=== PATIENT | male | born 1985 | race Hispanic/Latino ===

== ENCOUNTER 2018-09-01 13:39 | Emergency (ER) | payer BC ==
--- NOTE | 2018-09-01 15:14 | RAD REPORT ---
EXAM DESCRIPTION: RAD - Chest Pa And Lat (2 Views) - 09/01/2018 2:32 pm CLINICAL HISTORY: Chest pain, productive cough COMPARISON: None. TECHNIQUE: PA and lateral views of the chest were obtained. FINDINGS: The lungs are clear. Heart size is normal and central vasculature is within normal limit s. No pleural effusion or pneumothorax seen. No acute bony finding noted. No aortic abnormality. IMPRESSION: No acute cardiopulmonary process.
[2018-09-01 15:20] LABS: Absolute Monocytes 0.9 K/uL (0.1-1.3); Absolute Neutrophil 7.5 K/uL (1.8-8.0); Basophils % 0.8 % (0-1.3); Eosinophils % 2.2 % (0-4.4); Lymphocytes % 18.4 % (15.3-44.8); MPV 8.2 fL (7.6-11.3); Monocytes % 8.2 % (3.3-12.3); RBC Red Blood Cell Count 5.31 M/uL (4.33-5.43)
[2018-09-01] MEDS ORDERED: ASPIRIN 81 MG CHEWABLE TABLET ONE (15:24)
[2018-09-01] MEDS ORDERED: NA CHLORIDE 0.9% 1,000 ML ONE (15:24)
[2018-09-01 15:36] LABS: Barbiturates NEGATIVE (NEGATIVE); Benzodiazepines NEGATIVE (NEGATIVE); Cocaine NEGATIVE (NEGATIVE); METHAMPHETAM NEGATIVE (NEGATIVE); Methadone NEGATIVE (NEGATIVE); Opiates NEGATIVE (NEGATIVE); Phencyclidine NEGATIVE (NEGATIVE); THC Cannibis NEGATIVE (NEGATIVE)
[2018-09-01 15:43] LABS: ALT/SGPT 44 U/L (12-78); AST/SGOT 24 U/L (15-37); Albumin 4.1 g/dL (3.4-5.0); Alkaline Phosphatase 92 U/L (45-117); BUN Blood Urea Nitrogen 16 mg/dL (7-18); Bicarbonate 29 mmol/L (21-32); Bilirubin Direct 0.1 mg/dL (0-0.2); Bilirubin Total 0.5 mg/dL (0.2-1.0); Glucose Level 93 mg/dL (74-106); Lipase 171 U/L (73-393); Magnesium 2.4 mg/dL (1.8-2.4); Potassium 4.1 mmol/L (3.5-5.1); Protein, Total 8.2 g/dL (6.4-8.2); Sodium Level 138 mmol/L (136-145); Troponin (Emerg Dept Use Only) < 0.02 ng/mL (0.0-0.045)
--- NOTE | 2018-09-01 16:08 | EDPHYS ---
Physician Documentation [facility] Name: Bandar Torrez Age: 32 yrs Sex: Male : 1985 Arrival Date: 09/01/2018 Time: 13:43 Bed 19 Private MD: None, None ED Physician Ronny Patricia HPI: 09/01 14:49 This 32 yrs old Male presents to ER via Ambulatory with complaints of Painful emma Cough. 14:49 The patient or guardian reports cough. emma 14:50 The patient or guardian reports chest pain that is located primarily in the anterior emma chest wall, bilaterally. The pain does not radiate. Onset: The symptoms/episode began/occurred 2 day(s) ago. Severity of symptoms: At their worst the symptoms were mild, in the emergency department the symptoms are unchanged. Modifying factors: The symptoms are alleviated by nothing, the symptoms are aggravated by movements and deep respirations. Associated signs and symptoms: The patient has no apparent associated signs or symptoms. Historical: - Allergies: 13:48 No Known Allergies; ss - Home Meds: 13:48 None [Active]; ss - PMHx: 13:48 None; ss - PSHx: 13:48 Hernia repair; ss - Immunization history:: Adult Immunizations up to date. - Social history:: Smoking status: Patient uses tobacco products, smokes one-half pack cigarettes per day. - Ebola Screening: : Patient denies exposure to infectious person Patient denies travel to an Ebola-affected area in the 21 days before illness onset. - Family history:: not pertinent. ROS: 14:50 Constitutional: Negative for fever, chills, and weight loss, Eyes: Negative for injury, emma pain, redness, and discharge, ENT: Negative for injury, pain, and discharge, Neck: Negative for injury, pain, and swelling, Respiratory: Negative for shortness of breath, cough, wheezing, and pleuritic chest pain, Abdomen/GI: Negative for abdominal pain, nausea, vomiting, diarrhea, and constipation, Back: Negative for injury and pain, : Negative for injury, bleeding, discharge, and swelling, MS/Extremity: Negative for injury and deformity, Skin: Negative for injury, rash, and discoloration, Neuro: Negative for headache, weakness, numbness, tingling, and seizure, Psych: Negative for depression, anxiety, suicide ideation, homicidal ideation, and hallucinations, Allergy/Immunology: Negative for hives, rash, and allergies, Endocrine: Negative for neck swelling, polydipsia, polyuria, polyphagia, and marked weight changes, Hematologic/Lymphatic: Negative for swollen nodes, abnormal bleeding, and unusual bruising. 14:50 Cardiovascular: Positive for chest pain, with cough, with movement, of the chest. emma Exam: 14:50 Constitutional: This is a well developed, well nourished patient who is awake, alert, emma and in no acute distress. Head/Face: Normocephalic, atraumatic. Eyes: Pupils equal round and reactive to light, extra-ocular motions intact. Lids and lashes normal. Conjunctiva and sclera are non-icteric and not injected. Cornea within normal limits. Periorbital areas with no swelling, redness, or edema. ENT: Nares patent. No nasal discharge, no septal abnormalities noted. Tympanic membranes are normal and external auditory canals are clear. Oropharynx with no redness, swelling, or masses, exudates, or evidence of obstruction, uvula midline. Mucous membranes moist. Neck: Trachea midline, no thyromegaly or masses palpated, and no cervical lymphadenopathy. Supple, full range of motion without nuchal rigidity, or vertebral point tenderness. No Meningismus. Chest/axilla: Normal chest wall appearance and motion. Nontender with no deformity. No lesions are appreciated. Cardiovascular: Regular rate and rhythm with a normal S1 and S2. No gallops, murmurs, or rubs. Normal PMI, no JVD. No pulse deficits. Respiratory: Lungs have equal breath sounds bilaterally, clear to auscultation and percussion. No rales, rhonchi or wheezes noted. No increased work of breathing, no retractions or nasal flaring. Abdomen/GI: Soft, non-tender, with normal bowel sounds. No distension or tympany. No guarding or rebound. No evidence of tenderness throughout. Back: No spinal tenderness. No costovertebral tenderness. Full range of motion. Male : Normal genitalia with no discharge or lesions. Skin: Warm, dry with normal turgor. Normal color with no rashes, no lesions, and no evidence of cellulitis. MS/ Extremity: Pulses equal, no cyanosis. Neurovascular intact. Full, normal range of motion. Neuro: Awake and alert, GCS 15, oriented to person, place, time, and situation. Cranial nerves II-XII grossly intact. Motor strength 5/5 in all extremities. Sensory grossly intact. Cerebellar exam normal. Normal gait. Psych: Awake, alert, with orientation to person, place and time. Behavior, mood, and affect are within normal limits. 14:50 Musculoskeletal/extremity: DVT Exam: No signs of deep vein thrombosis. no pain, no swelling, no tenderness, negative Homans' sign noted on exam, no appreciated bluish discoloration, no erythema, no increased warmth. Vital Signs: 13:48 BP 145 / 81; Pulse 87; Resp 15; Temp 97.9(TE); Pulse Ox 98% on R/A; Weight 77.11 kg; ss Height 5 ft. 6 in. (167.64 cm); Pain 0/10; 15:44 BP 121 / 82; Pulse 74; Resp 16; Pulse Ox 100% ; bp 13:48 Body Mass Index 27.44 (77.11 kg, 167.64 cm) MDM: 13:50 Patient medically screened. [facility] 14:56 Data reviewed: vital signs, nurses notes, lab test result(s), EKG, radiologic studies, emma plain films. 09/01 14:49 Order name: Basic Metabolic Panel; Complete Time: 16:07 [facility] 09/01 14:49 Order name: CBC with Diff; Complete Time: 16:07 [facility] 09/01 14:49 Order name: LFT's; Complete Time: 16:07 [facility] 09/01 14:49 Order name: Magnesium; Complete Time: 16:07 [facility] 09/01 14:49 Order name: Troponin (emerg Dept Use Only); Complete Time: 16:07 [facility] 09/01 14:49 Order name: Lipase; Complete Time: 16:07 [facility] 09/01 14:17 Order name: Chest Pa And Lat (2 Views) XRAY; Complete Time: 16:07 [facility] 09/01 14:49 Order name: EKG; Complete Time: 14:50 [facility] 09/01 14:49 Order name: Cardiac monitoring; Complete Time: 15:18 [facility] 09/01 14:49 Order name: UDS; Complete Time: 16:07 [facility] 09/01 14:56 Order name: D-Dimer; Complete Time: 16:07 [facility] 09/01 15:15 Order name: Urine Dipstick--Ancillary (enter results) 09/01 14:49 Order name: EKG - Nurse/Tech; Complete Time: 15:18 [facility] 09/01 14:49 Order name: IV Saline Lock; Complete Time: 15:18 [facility] 09/01 14:49 Order name: Labs collected and sent; Complete Time: 15:18 [facility] 09/01 14:49 Order name: O2 Per Protocol; Complete Time: 15:18 [facility] 09/01 14:49 Order name: O2 Sat Monitoring; Complete Time: 15:18 [facility] 09/01 14:49 Order name: Urine Dipstick-Ancillary (obtain specimen); Complete Time: 15:17 [facility] Administered Medications: 15:00 Drug: Aspirin 162 mg Route: PO; bp 16:38 Follow up: Response: No adverse reaction bp 15:00 Drug: NS 0.9% 1000 ml Route: IV; Rate: 125 ml/hr; Site: right antecubital; bp 16:38 Follow up: IV Status: Completed infusion; IV Intake: 250ml bp Disposition: 09/01/18 16:07 Discharged to Home. Impression: Other chest pain, Cough. - Condition is Stable. - Discharge Instructions: Nonspecific Chest Pain, Chest Wall Pain, Nonspecific Chest Pain, [id number], Aspirin and Your Heart. - Prescriptions for Ibuprofen 600 mg Oral Tablet - take 1 tablet by ORAL route every 8 hours As needed take with food; 21 tablet. - Medication Reconciliation Form, Thank You Letter, Antibiotic Education, Prescription Opioid Use form. - Follow up: Private Physician; When: 2 - 3 days; Reason: Recheck today's complaints, Continuance of care, Re-evaluation by your physician. Follow up: Ke Pang; When: 2 - 3 days; Reason: Recheck today's complaints, Re-evaluation by your physician. - Problem is new. - Symptoms have improved. Signatures: Dispatcher [employer] EDMS Ronny Patricia MD MD cha Smirch, Shelby, RN RN Mt Zuñiga RN RN bp Corrections: (The following items were deleted from the chart) 14:55 14:50 Cardiovascular: Positive for chest pain, with cough, with movement, of the , emma [facility] 16:45 16:07 09/01/2018 16:07 Discharged to Home. Impression: Other chest pain; Cough. bp Condition is Stable. Discharge Instructions: Nonspecific Chest Pain, Chest Wall Pain, Nonspecific Chest Pain, [id number], Aspirin and Your Heart. Prescriptions for Ibuprofen 600 mg Oral Tablet - take 1 tablet by ORAL route every 8 hours As needed take with food; 21 tablet. and Forms are Medication Reconciliation Form, Thank You Letter, Antibiotic Education, Prescription Opioid Use. Follow up: Private Physician; When: 2 - 3 days; Reason: Recheck today's complaints, Continuance of care, Re-evaluation by your physician. Follow up: Ke Pang; When: 2 - 3 days; Reason: Recheck today's complaints, Re-evaluation by your physician. Problem is new. Symptoms have improved. emma
--- NOTE | 2018-09-01 16:08 | ER ---
Nurse's Notes [facility] Name: Bandar Torrez Age: 32 yrs Sex: Male : 1985 Arrival Date: 09/01/2018 Time: 13:43 Bed 19 Private MD: None, None Diagnosis: Other chest pain;Cough Presentation: 09/01 13:46 Presenting complaint: Patient states: Painful, productive cough that began 2.5 weeks ss ago, but went away and is now back for the past 2-3 days. Pt is concerned because when he coughs his chest hurts. Denies fever. Transition of care: patient was not received from another setting of care. Onset of symptoms is unknown. Risk Assessment: Do you want to hurt yourself or someone else? Patient reports no desire to harm self or others. Initial Sepsis Screen: Does the patient meet any 2 criteria? No. Patient's initial sepsis screen is negative. Does the patient have a suspected source of infection? Yes: Productive cough/pneumonia. Care prior to arrival: None. 13:46 Method Of Arrival: Ambulatory ss 13:46 Acuity: SUNNY 3 ss Triage Assessment: 13:54 General: Appears in no apparent distress. comfortable, Behavior is calm, cooperative, bp appropriate for age. Pain: Complains of pain in chest. EENT: No deficits noted. Neuro: Level of Consciousness is awake, alert, obeys commands, Oriented to person, place, time, situation, Appropriate for age. Cardiovascular: No deficits noted. Respiratory: Reports cough that is. GI: No signs and/or symptoms were reported involving the gastrointestinal system. : No signs and/or symptoms were reported regarding the genitourinary system. Derm: No deficits noted. Musculoskeletal: Circulation, motion, and sensation intact. Range of motion: intact in all extremities. Historical: - Allergies: 13:48 No Known Allergies; ss - Home Meds: 13:48 None [Active]; ss - PMHx: 13:48 None; ss - PSHx: 13:48 Hernia repair; ss - Immunization history:: Adult Immunizations up to date. - Social history:: Smoking status: Patient uses tobacco products, smokes one-half pack cigarettes per day. - Ebola Screening: : Patient denies exposure to infectious person Patient denies travel to an Ebola-affected area in the 21 days before illness onset. - Family history:: not pertinent. Screenin:56 Abuse screen: Denies threats or abuse. Denies injuries from another. Nutritional bp screening: No deficits noted. Tuberculosis screening: No symptoms or risk factors identified. Fall Risk None identified. Assessment: 13:56 Reassessment: SEE TRIAGE NOTE. bp 14:00 Pain: Pain does not radiate. Pain began gradually. bp 15:44 Reassessment: ALL CURRENT ORDERS COMPLETE, VS STABLE ON MONITOR. bp 16:36 Reassessment: PT D/C HOME AMBULATORY, DX WITH NON-CARDIAC CP. bp Vital Signs: 13:48 BP 145 / 81; Pulse 87; Resp 15; Temp 97.9(TE); Pulse Ox 98% on R/A; Weight 77.11 kg; ss Height 5 ft. 6 in. (167.64 cm); Pain 0/10; 15:44 BP 121 / 82; Pulse 74; Resp 16; Pulse Ox 100% ; bp 13:48 Body Mass Index 27.44 (77.11 kg, 167.64 cm) ss ED Course: 13:43 Patient arrived in ED. sb2 13:43 None, None is Private Physician. sb2 13:47 Triage completed. ss 13:48 Arm band placed on right wrist. ss 13:49 Ronny Patricia MD is Attending Physician. emma 13:54 Mt Rivers, WAYNE is Primary Nurse. bp 13:56 Patient has correct armband on for positive identification. Bed in low position. Call bp light in reach. Side rails up X2. Pulse ox on. NIBP on. 14:31 X-ray completed. Patient tolerated procedure well. Patient moved back from radiology. ls3 14:32 Chest Pa And Lat (2 Views) XRAY In Process Unspecified. EDMS 15:00 Inserted saline lock: 20 gauge in right antecubital area, using aseptic technique. bp Blood collected. 16:07 Ke Pang MD is Referral Physician. emma 16:34 No provider procedures requiring assistance completed. IV discontinued, intact, bp bleeding controlled, No redness/swelling at site. Pressure dressing applied. Patient maintains SpO2 saturation greater than 95% on room air. Administered Medications: 15:00 Drug: Aspirin 162 mg Route: PO; bp 16:38 Follow up: Response: No adverse reaction bp 15:00 Drug: NS 0.9% 1000 ml Route: IV; Rate: 125 ml/hr; Site: right antecubital; bp 16:38 Follow up: IV Status: Completed infusion; IV Intake: 250ml bp Intake: 16:38 IV: 250ml; Total: 250ml. bp Outcome: 16:07 Discharge ordered by . emma 16:34 Discharged to home ambulatory. bp 16:34 Condition: stable 16:34 Discharge instructions given to patient, Instructed on discharge instructions, follow up and referral plans. medication usage, Demonstrated understanding of instructions, follow-up care, medications, Prescriptions given X 1. 16:45 Patient left the ED. bp Signatures: Dispatcher [employer] EDNY Ronny Patricia MD MD cha Smirch, Shelby, RN RN Mt Zuñiga RN RN Saira Norris sb2 [email or web address]
[2018-09-01 16:18] LABS: Urine Blood NEGATIVE (NEG); Urine Glucose NEGATIVE (NEG); Urine Protein TRACE (NEG); Urine Specific Gravity 1.015 (1.005-1.030)
--- NOTE | 2018-09-02 08:00 | EKG ---
Test Date: 2018-09-01 Test Time: 15:10:21 Cotton Opener: CHAO MEASUREMENT RESULTS: Intervals: Rate: 74 IA: 176 QRSD: 92 QT: 352 QTc: 390 [place]: P: 54 IA: 176 QRS: 80 T: 47 INTERPRETIVE STATEMENTS: Normal sinus rhythm with sinus arrhythmia Normal ECG No previous ECG available for comparison Electronically Signed On 09-02-18 07:59:45 [employer]CIAL [employer] by Kelvin De Anda
== END 2018-09-01 16:45 | disposition home or self-care (01) ==
LOC: ER 13:39
DX: R05 Cough (principal); R07.89 Other chest pain
CPT/HCPCS: 36415; 71046; 80048; 80076; 80307; 81003; 83690; 83735; 84484; 85025; 85379; 93005; 96360; 96361; 99284; J7030

== ENCOUNTER 2022-06-24 19:51 | Emergency (ER) | payer BC ==
--- OUTSIDE RECORDS SUMMARY | 2022-06-24 19:55 | XMS REPORT | Continuity of Care Document ---
:1985 Author Organization [facility] t Address [address] [place] [address] Care Team Providers Name Role Phone Pcp, Patient Does Not Have A Primary Care Physician [id number] Venkatesh Hodges Attending Clinician VENKATESH LINCOLN Attending Clinician Unavailable Ronny Stephenson RN Attending Clinician Unavailable Lab, Adc Fam Pob I Attending Clinician Unavailable aMe [place] Attending Clinician MAE ROSAS Attending Clinician Unavailable Payers Payer Name Policy Type Policy Number Effective Date Expiration Date S ource Problems Condition Condition Condition Status Onset Resolution Last Treating Co mments Source Name Details Category Date Date Treatment Clinician Date No known No known Disease Unive rs active active ity of problems problems [facility] [place] Allergies, Adverse Reactions, Alerts Allergy Allergy Status Severity Reaction(s) Onset Inactive Treating Comm ents Source Name Type Date Date Clinician NO KNOWN Drug Active Univers ALLERGIE Class ity of S [facility] Social History Social Habit Start Date Stop Date Quantity Comments Source Exposure to 2022-02-06 2022-02-16 Not sure [facility] SARS-CoV-2 (event) 00:00:00 20:15:00 Medica l Branch Sex Assigned [birth year] [facility] 00:00:00 00:00:00 [facility] Smoking Status Start Date Stop Date Source Unknown if ever smoked [facility] Medications Ordered Filled Start Stop Current Ordering Indication Dosage Frequency Signature Comments Components Source Medication Medication Date Date Medication? Clinician (SIG) Name Name meclizine 25mg 25 mg, Unive rs (TRAVEL-EAS 02-17 Oral, ity of E 01:45: 01:14 ONCE, 1 [place] (MECLIZINE) 00 :00 dose, On Medi [facility] ) tablet 25 Sat Branch mg 02/16/22 at 2045, MIRTA meclizine Yes [id number] 25mg Take 1 U nivers 25 mg 02-16 tablet by ity of tablet 00:00: mouth [place] 00 every 6 Medical (six) Branch hours. Vital Signs Vital Name Observation Time Observation Value Comments Source Systolic blood 2022-02-17 01:31:00 138 [facility] pressure [facility] Diastolic blood 2022-02-17 01:31:00 88 mm[Hg] [facility] Heart rate 2022-02-17 01:31:00 73 /min [facility] Respiratory rate 2022-02-17 01:31:00 16 /min [facility] Oxygen saturation in 2022-02-17 01:31:00 100 /min [facility] Arterial blood by [facility] Pulse oximetry [place] Body temperature 2022-02-16 23:16:00 37 Velma [facility] Body height 2022-02-16 23:16:00 170.2 cm [facility] Body weight 2022-02-16 23:16:00 77.111 kg [facility] BMI 2022-02-16 23:16:00 26.63 kg/m2 [facility] Procedures Procedure Date / Time Performing Clinician Source Performed CREATINE KINASE 2022-02-16 23:35:00 Venkatesh [facility] TROPONIN I 2022-02-16 23:35:00 Venkatesh [facility] COMP. METABOLIC PANEL 2022-02-16 23:35:00 Venkatesh [facility] ([id number]) [facility] CBC WITH DIFF 2022-02-16 23:35:00 Venkatesh [facility] PROTHROMBIN TIME / INR 2022-02-16 23:35:00 Venkatesh [facility] URINALYSIS 2022-02-16 23:35:00 Venkatesh [facility] N-TERMINAL PRO-BNP 2022-02-16 23:35:00 Venkatesh [facility] Encounters Start End Encounter Admission Attending Care Care Encounter Source Date/Time Date/Time Type Type Clinicians Facility Department ID 2022-02-16 2022-02-16 Emergency Sadie [facility] [id number] Univers 18:20:00 20:36:00 Venkatesh LUIS [id number] i ty [facility] [id number] [place] [facility] [id number] [address] 2022-02-16 2022-02-16 Emergency [facility] [id number] Univers 18:20:00 20:36:00 VENKATESH [facility] 2020-03-15 2020-03-15 Telephone MAIDA Stephenson [id number] [facility] 00:00:00 00:00:00 Ronny GABRIELLA [id number] it y of [facility] 4.2.7.2.686 [place] as [id number] [address] 2020-03-15 2020-03-15 Telephone MAIDA Stephenson [id number] 00:00:00 00:00:00 Ronny GABRIELLA [id number] [facility] 4.2.7.2.686 [id number] [facility] 2020-03-14 2020-03-14 Laboratory Lab, [facility] Fam Pob I [facility] [id number]. [id number] [facility] 16:48:50 17:08:50 Only Anene, [facility] [id number] ity of [place] 4.2.7.2.686 [place] as Professio [id number] [address] 2020-03-14 2020-03-14 Laboratory Lab, [facility] 1.2.840.114 [id number] 16:48:50 17:08:50 Only Fam Pob I Health 350.1.13.10 [place] 4.2.7.2.686 [place] [id number] [address] 2020-03-14 2020-03-14 Outpatient R R[facility]PH [facility] [id number] Univers 16:40:00 16:40:00 MAE vázquez [facility] Results Test Description Test Time Test Comments Results Result Comments Source TROPONIN I 2022-02-17 00:23:42 Test Item Value Reference Range Interpretation Comme nts TROPONIN I (test code = 0.001 ng/mL See_Comment [Au tomated message] The 2396280750) system which ge nerated this result tra nsmitted reference range : <=0.034. The reference r duke was not used to int erpret this result as normal/abnormal . REJI (test code = REJI) Reference (Normal) Range (defined by the 99th percentile reference limit): <= 0.034 ng/mL Note: Cardiac troponin begins to rise 3-4 hours after the onset of ischemia. Repeat in 4-6 hours if the sample was drawn within 3-4 hours of the onset of the symptom and found normal. Diagnosis of myocardial injury is made with acute changes in cTn concentrations with at least one serial sample above the 99th percentile upper reference limit (URL), taken together with the patient's clinical presentation. Biotin has been reported to cause a negative bias, interpret results relative to patient's use of biotin. Lab Interpretation Normal (test code = 49118-9) [facility] [id number] 00:20:17 Test Item Value Reference Range Interpretation Comments NT-proBNP (test code 25 pg/mL See_Comment [Autom ated = 2366979307) message] The system which generated this result transmitted reference range : <=125. The reference range was not used to interpret this result as normal/abnormal . REJI (test code = REJI) Biotin has been reported to cause a negative bias, interpret results relative to patient's use of biotin. Lab Interpretation Normal (test code = 86536-2) [facility] ([id number])2022-02-17 00:11:41 Test Item Value Reference Range Interpretation Comments NA (test code = 141 mmol/L 135-145 8464594036) K (test code = 4.1 mmol/L 3.5-5.0 1476969596) CL (test code = 103 mmol/L 98-108 2415315310) CO2 TOTAL (test code = 25 mmol/L 23-31 2883342173) AGAP (test code = 2-16 6198735503) BUN (test code = 10 mg/dL 7-23 8204337380) GLUCOSE (test code = 122 mg/dL 70-110 H 2295812261) CREATININE (test code = 0.93 mg/dL 0.60-1.25 5220483415) TOTAL BILI (test code = 0.6 mg/dL 0.1-1.2 2739075244) CALCIUM (test code = 9.9 mg/dL 8.6-10.6 0802825389) T PROTEIN (test code = 7.7 g/dL 6.3-8.2 8820523942) ALBUMIN (test code = 4.9 g/dL 3.5-5.0 4988346258) ALK PHOS (test code = 71 U/L 34-122 0577215100) ALTv (test code = 35 U/L 5-50 2-6) AST(SGOT) (test code = 34 U/L 13-40 2805269291) eGFR (test code = mL/min/1.73m2 9165198651) REJI (test code = REJI) Association of Glomerular Filtration Rate (GFR) and Staging of Kidney Disease* + --+ --+ ------+| GFR (mL/min/1.73 m2) ?| With Kidney Damage ?| ?Without Kidney Damage+ --------+ --------+ +| ?>90 ?| ?Stage one ?| ? Normal ?+ ---+ ---+ -------+| ?60-89 ?| ?Stage two ?| ? Decreased GFR ? + --+ --+ ------+| ?30-59 ?| ?Stage three ?| ? Stage three ? + --+ --+ ------+| ?15-29 ?| ?Stage four ? | ? Stage four ?+ ---+ ---+ -------+| ?<15 (or dialysis) ? ?| ?Stage five ? | ? Stage five ?+ ---+ ---+ -------+ *Each stage assumes the associated GFR level has been in effect for at least three months. ?Stages 1 to 5, with or without kidney disease, indicate chronic kidney disease. Notes: Determination of stages one and two (with eGFR >59mL/min/1.73 m2) requires estimation of kidney damage for at least three months as defined by structural or functional abnormalities of the kidney, manifested by either:Pathological abnormalities or Markers of kidney damage (including abnormalities in the composition of the blood or urine or abnormalities in imaging tests). Lab Interpretation Abnormal (test code = 63171-8) [facility] [id number] 00:11:21 Test Item Value Reference Range Interpretation Comments CK (test code = 4639576556) 62 U/L 33-194 Lab Interpretation (test code = Normal 96504-5) [facility] / [id number] 00:07:00 Test Item Value Reference Range Interpretation Comments PROTIME PATIENT (test See_Comment [Auto mated message] code = 5964-2) The system wh ich generated this result transmitted ref erence range: 12.0 - 1 4.7 Seconds. The re ference range was not u sed to interpret this result as normal/abnor mal. INR (test code = 6301-6) Nor mal INR <1.1; Warfarin Therap eutic range 2.0 to 3. 0 or 2.5 to 3.5, dep ending upon the indica tions. Lab Interpretation (test Normal code = 68520-8) [facility] [id number] 23:58:38 Test Item Value Reference Range Interpretation Comments WBC (test code = See_Comment [Automated 7990-2) message] The sy stem which generated this result transmitted reference range : 4.20 - 10.70 10*3/?L. The reference range was not used to interpret this result as normal/abnormal . RBC (test code = See_Comment [Automated 449-8) message] The sy stem which generated this result transmitted reference range : 4.26 - 5.52 10*6/?L. The reference range was not used to interpret this result as normal/abnormal . HGB (test code = 15.1 g/dL 12.2-16.4 718-7) HCT (test code = 44.7 % 38.4-49.3 4544-3) MCV (test code = 89.4 fL 81.7-95.6 787-2) MCH (test code = 30.2 pg 26.1-32.7 785-6) MCHC (test code = 33.8 g/dL 31.2-35.0 786-4) RDW-SD (test code = 41.9 fL 38.5-51.6 50424-3) RDW-CV (test code = 12.7 % 12.1-15.4 788-0) PLT (test code = See_Comment H [Automated 777-3) message] The sy stem which generated this result transmitted reference range : 150 - 328 10*3/ ?L. The reference r duke was not used to interpret this result as normal/abnormal . MPV (test code = 9.7 fL 9.8-13.0 L 96174-7) NRBC/100 WBC (test See_Comment [Automat ed code = 7038774647) message] The system which generated this result transmitted reference range : 0.0 - 10.0 /100 WBCs. The refer ence range was not u sed to interpret th is result as normal/abnormal . NRBC x10^3 (test code <0.01 See_Comment [Auto mated = 4184970198) message] The s ystem which generated this result transmitted reference range : 10*3/?L. The reference range was not used to interpret this result as normal/abnormal . GRAN MAT (NEUT) % 74.3 % (test code = 770-8) IMM GRAN % (test code 0.60 % = 3033671575) LYMPH % (test code = 18.4 % 736-9) MONO % (test code = 5.3 % 5905-5) EOS % (test code = 0.6 % 713-8) BASO % (test code = 0.8 % 706-2) GRAN MAT x10^3(ANC) 7.88 10*3/uL 1.99-6.95 H (test code = 6330160832) IMM GRAN x10^3 (test 0.06 10*3/uL 0.00-0.06 code = 3613627572) LYMPH x10^3 (test code 1.95 10*3/uL 1.09-3.23 = 731-0) MONO x10^3 (test code 0.56 10*3/uL 0.36-1.02 = 742-7) EOS x10^3 (test code = 0.06 10*3/uL 0.06-0.53 711-2) BASO x10^3 (test code 0.09 10*3/uL 0.01-0.09 = 704-7) Lab Interpretation Abnormal (test code = 37898-4) [facility]"
[2022-06-24] MEDS ORDERED: CYCLOBENZAPRINE 10 MG TAB ONE (20:41)
--- NOTE | 2022-06-24 21:04 | RAD REPORT ---
EXAM DESCRIPTION: CT - Abdomen Pelvis Wo Contrast - 06/24/2022 8:35 pm CLINICAL HISTORY: Abdominal pain COMPARISON: 2019 TECHNIQUE: Computed axial tomography of the abdomen and pelvis was obtained. IV and oral contrast we re not requested. All CT scans are performed using dose optimization technique as appropriate and may include automated exposure control or mA/KV adjustment according to patient size. FINDINGS: The evaluation of solid organs, vessels and bowel is limited secondary to the lack of con trast administration. Small bilateral renal calculi. No hydronephrosis. The liver, spleen, pancreas, adrenals and kidneys appear grossly normal. The appendix is normal. There is no evidence of diverticulitis. Small right paracentral disc bulge or herniation L5-S1 IMPRESSION: Small nonobstructing renal calculi
--- NOTE | 2022-06-24 21:44 | EDPHYS ---
Physician Documentation [facility] Name: Bandar Torrez Age: 36 yrs Sex: Male : 1985 Arrival Date: 06/24/2022 Time: 19:53 Bed 3 Private MD: ED Physician Ronny Patricia HPI: 06/24 20:21 This 36 yrs old Male presents to ER via Ambulatory with complaints of Low Back jl9 Pain, right flank pain x3 days. . 20:21 The patient presents with pain and tenderness. The symptoms are located in the low jl9 back. The pain radiates to the right low back. The problem was sustained from twisting. Onset: The symptoms/episode began/occurred 3 day(s) ago. Modifying factors: The patient symptoms are alleviated by nothing, the patient symptoms are aggravated by bending. Associated signs and symptoms: The patient has no apparent associated signs or symptoms. Severity of symptoms: in the emergency department the symptoms a " 3" out of "10". Historical: - Allergies: 20:27 No Known Allergies; ha1 - Immunization history:: Adult Immunizations up to date. - Social history:: Smoking status: Patient reports the use of cigarette tobacco products, denies chronic smoking, but will smoke occasionally. ROS: 20:22 Constitutional: Negative for fever, chills, and weight loss, Eyes: Negative for injury, jl9 pain, redness, and discharge, ENT: Negative for injury, pain, and discharge, Neck: Negative for injury, pain, and swelling, Cardiovascular: Negative for chest pain, palpitations, and edema, Respiratory: Negative for shortness of breath, cough, wheezing, and pleuritic chest pain, Abdomen/GI: Negative for abdominal pain, nausea, vomiting, diarrhea, and constipation. 20:22 : Negative for injury, bleeding, discharge, and swelling, MS/Extremity: Negative for injury and deformity, Skin: Negative for injury, rash, and discoloration, Neuro: Negative for headache, weakness, numbness, tingling, and seizure, Psych: Negative for depression, anxiety, suicide ideation, homicidal ideation, and hallucinations, Allergy/Immunology: Negative for hives, rash, and allergies, Endocrine: Negative for neck swelling, polydipsia, polyuria, polyphagia, and marked weight changes, Hematologic/Lymphatic: Negative for swollen nodes, abnormal bleeding, and unusual bruising. 20:22 Back: Positive for decreased range of motion, pain with movement, flank pain, on the right. Exam: 20:23 Constitutional: This is a well developed, well nourished patient who is awake, alert, jl9 and in no acute distress. Head/Face: Normocephalic, atraumatic. Eyes: Pupils equal round and reactive to light, extra-ocular motions intact. Lids and lashes normal. Conjunctiva and sclera are non-icteric and not injected. Cornea within normal limits. Periorbital areas with no swelling, redness, or edema. ENT: Mucous membranes moist. Neck: Trachea midline, no thyromegaly or masses palpated, and no cervical lymphadenopathy. Supple, full range of motion without nuchal rigidity, or vertebral point tenderness. No Meningismus. Chest/axilla: Normal chest wall appearance and motion. Nontender with no deformity. No lesions are appreciated. Cardiovascular: Regular rate and rhythm with a normal S1 and S2. No gallops, murmurs, or rubs. Normal PMI, no JVD. No pulse deficits. Respiratory: Lungs have equal breath sounds bilaterally, clear to auscultation and percussion. No rales, rhonchi or wheezes noted. No increased work of breathing, no retractions or nasal flaring. Abdomen/GI: Soft, non-tender, with normal bowel sounds. No distension or tympany. No guarding or rebound. No evidence of tenderness throughout. Back: No spinal tenderness. No costovertebral tenderness. Full range of motion. Skin: Warm, dry with normal turgor. Normal color with no rashes, no lesions, and no evidence of cellulitis. MS/ Extremity: Pulses equal, no cyanosis. Neurovascular intact. Full, normal range of motion. Neuro: Awake and alert, GCS 15, oriented to person, place, time, and situation. Cranial nerves II-XII grossly intact. Motor strength 5/5 in all extremities. Sensory grossly intact. Cerebellar exam normal. Normal gait. Psych: Awake, alert, with orientation to person, place and time. Behavior, mood, and affect are within normal limits. Vital Signs: 20:24 BP 133 / 86; Pulse 65; Resp 16 S; Temp 98.1; Pulse Ox 99% on R/A; Weight 79.38 kg; ha1 Height 5 ft. 6 in. (167.64 cm); Pain 8/10; 20:30 BP 133 / 86; Pulse 65; Resp 16 S; Pulse Ox 99% on R/A; ha1 20:24 Body Mass Index 28.25 (79.38 kg, 167.64 cm) ha1 MDM: 20:07 Patient medically screened. jl9 20:23 Differential diagnosis: arthritis, strain, sciatica, Herniated disc. Data reviewed: jl9 vital signs, nurses notes. 21:27 Counseling: I had a detailed discussion with the patient and/or guardian regarding: the jl9 historical points, exam findings, and any diagnostic results supporting the discharge/admit diagnosis, radiology results, the need for outpatient follow up, to return to the emergency department if symptoms worsen or persist or if there are any questions or concerns that arise at home. Response to treatment: the patient's symptoms have markedly improved after treatment. 06/24 21:56 Order name: Urine Dipstick-Ancillary; Complete Time: 21:56 EDMS 06/24 20:21 Order name: CT Abd/Pelvis - Without Contrast; Complete Time: 21:08 jl9 06/24 20:21 Order name: Urine Dipstick-Ancillary (obtain specimen); Complete Time: 21:55 jl Administered Medications: 20:40 Drug: Cyclobenzaprine 10 mg Route: PO; 1 21:55 Follow up: Response: No adverse reaction [facility] Disposition: 06/25 04:18 Co-signature as Attending Physician, Ronny Patricia MD I agree with the assessment and emma plan of care. Disposition Summary: 06/24/22 21:44 Discharge Ordered Location: Home jl9 Condition: Stable jl9 Diagnosis - Low back pain jl9 - Calculus of ureter jl9 - Kidney Stone/ Calculus in bladder jl9 Followup: jl9 - With: Private Physician - When: 1 - 2 days - Reason: Recheck today's complaints, Continuance of care, Re-evaluation by your physician Discharge Instructions: - Discharge Summary Sheet jl9 - Kidney Stones jl9 - Muscle Strain, Mewt-hl-Ahuy jl9 Forms: - Medication Reconciliation Form jl9 - Thank You Letter jl9 - Antibiotic Education jl9 - Prescription Opioid Use jl9 Prescriptions: - Flomax 0.4 mg Oral capsule - take 1 capsule by ORAL route once daily 1/2 hour following the same meal each jl9 day; 30 capsule; Refills: 0, Product Selection Permitted - ketorolac 10 mg Oral tablet - take 1 tablet by ORAL route every 6 hours As needed not to exceed 40 mg in jl9 24hrs; 30 tablet; Refills: 0, Product Selection Permitted - Cyclobenzaprine 10 mg Oral Tablet - take 1 tablet by ORAL route every 8 hours As needed; 30 tablet; Refills: 0, Product Selection Permitted - ondansetron 8 mg Oral tablet,disintegrating - take 1 tablet by ORAL route every 8 hours As needed; 20 tablet; Refills: 0, Product Selection Permitted Signatures: Dispatcher [employer] Ronny Landa MD MD cha Linares, John 9 Kendy Gutierrez, RN RN ha1
--- NOTE | 2022-06-24 21:44 | ER ---
Nurse's Notes [facility] Name: Bandar Torrez Age: 36 yrs Sex: Male : 1985 Arrival Date: 06/24/2022 Time: 19:53 Bed 3 Private MD: Diagnosis: Low back pain;Calculus of ureter;Kidney Stone/ Calculus in bladder Presentation: 06/24 20:24 Chief complaint: Patient states: back pain that has been going on since friday. ha1 Coronavirus screen: Vaccine status: Patient reports receiving the 2nd dose of the covid vaccine. Pfiser. Ebola Screen: No symptoms or risks identified at this time. Initial Sepsis Screen: Does the patient meet any 2 criteria? No. Patient's initial sepsis screen is negative. Does the patient have a suspected source of infection? No. Patient's initial sepsis screen is negative. Risk Assessment: Do you want to hurt yourself or someone else? Patient reports no desire to harm self or others. Onset of symptoms was June 24, 2022. 20:24 Method Of Arrival: Ambulatory ha1 20:24 Acuity: SUNNY 3 ha1 Triage Assessment: 20:27 General: Appears uncomfortable, Behavior is calm, cooperative. Pain: Complains of pain ha1 in right low back Pain does not radiate. Pain at worst was 10 out of 10 on a pain scale. Quality of pain is described as pressure, Pain began gradually, Is intermittent, Alleviated by medications, Aggravated by exercise. EENT: No deficits noted. No signs and/or symptoms were reported regarding the EENT system. Neuro: Level of Consciousness is awake, alert, obeys commands, Oriented to person, place, time, situation. Cardiovascular: Patient's skin is warm and dry. Respiratory: Airway is patent Trachea midline Respiratory effort is even, unlabored, Respiratory pattern is regular, symmetrical. GI: No signs and/or symptoms were reported involving the gastrointestinal system. Abdomen is flat, non-distended. : No signs and/or symptoms were reported regarding the genitourinary system. Musculoskeletal: Circulation, motion, and sensation intact. Range of motion: intact in all extremities. Historical: - Allergies: 20:27 No Known Allergies; ha1 - Immunization history:: Adult Immunizations up to date. - Social history:: Smoking status: Patient reports the use of cigarette tobacco products, denies chronic smoking, but will smoke occasionally. Screenin:30 Abuse screen: Denies threats or abuse. Denies injuries from another. Nutritional ha1 screening: No deficits noted. Tuberculosis screening: No symptoms or risk factors identified. Fall Risk None identified. Assessment: 20:30 General: see triage. ha1 20:31 Reassessment: Patient is alert, oriented x 3, equal unlabored respirations, skin ha1 warm/dry/pink. Going to CT. 21:46 Reassessment: Patient and/or family updated on plan of care and expected duration. Pain ha1 level reassessed. Patient is alert, oriented x 3, equal unlabored respirations, skin warm/dry/pink. Vital Signs: 20:24 BP 133 / 86; Pulse 65; Resp 16 S; Temp 98.1; Pulse Ox 99% on R/A; Weight 79.38 kg; ha1 Height 5 ft. 6 in. (167.64 cm); Pain 8/10; 20:30 BP 133 / 86; Pulse 65; Resp 16 S; Pulse Ox 99% on R/A; ha1 20:24 Body Mass Index 28.25 (79.38 kg, 167.64 cm) ha1 ED Course: 19:53 Patient arrived in ED. am2 19:53 [facility] jl9 19:53 Ronny Patricia MD is Attending Physician. jl9 20:24 Kendy Gutierrez, WAYNE is Primary Nurse. ha1 20:27 Triage completed. ha1 20:29 Arm band placed on right wrist. ha1 20:37 CT Abd/Pelvis - Without Contrast In Process Unspecified. EDMS 21:55 No provider procedures requiring assistance completed. Patient did not have IV access ha1 during this emergency room visit. 21:56 Patient has correct armband on for positive identification. Bed in low position. Call ha1 light in reach. Side rails up X 1. Administered Medications: 20:40 Drug: Cyclobenzaprine 10 mg Route: PO; ha1 21:55 Follow up: Response: No adverse reaction ha1 Medication: 21:56 VIS not applicable for this client. ha1 Outcome: 21:44 Discharge ordered by . jl9 21:56 Discharged to home ambulatory. ha1 21:56 Condition: stable 21:56 Discharge instructions given to patient, Instructed on discharge instructions, follow up and referral plans. medication usage, Demonstrated understanding of instructions, follow-up care, medications, Prescriptions given X 4. 21:57 Patient left the ED. ha1 Signatures: Dispatcher [employer] Gale Morley John jl9 Kendy Gutierrez RN RN ha1
[2022-06-24 21:55] LABS: Urine Blood Negative (Negative); Urine Glucose Negative (Negative); Urine Protein Negative (Negative)
[2022-06-24 23:14] VITALS: BP 133/86; TEMP 98.1; O2SAT 99
== END 2022-06-24 21:57 | disposition home or self-care (01) ==
LOC: ER 19:51
DX: N20.2 Calculus of kidney with calculus of ureter (principal); N21.0 Calculus in bladder; F17.210 Nicotine dependence, cigarettes, uncomplicated
CPT/HCPCS: 74176; 81003; 99283

== ENCOUNTER 2024-11-02 18:01 | Emergency (ER) | payer BC ==
--- OUTSIDE RECORDS SUMMARY | 2024-11-02 18:06 | XMS REPORT | Continuity of Care Document ---
Author Name Unknown Address [address] [facility] [address] [place] [address] [facility] Address [address] [facility] [address] [place] [address] Care Team Providers Care Checkman Name Role Phone Olga Teixeira Primary Care Physician Mathew Owusu MD Attending Clinician [phone] Unknown, Attending Attending Clinician UnavailMATHEW Berg Attending Clinician Unavailab zuniga Doctor Unassigned, [place] Attending Clinician U Jamari Santiago Attending Clinician Unavailable VENKATESH NOEL Attending Clinician Unavailable Venkatesh Hodges Attending Clinician [phone] Ronny Stephenson RN Attending Clinician Unavailab efrain Lab, Adc Fam Pob I Attending Clinician UnavailMae Maxwell Attending Clinician [phone] MAE OROZCO Attending Clinician Unavailable Physician, No Primary or Family Admitting Clinic adán Unavailable Payers Payer Name Policy Type Policy Number Effective Date Expirati on Date Source Problems Condition Name Condition Details Condition Category Status Onset Date Resolution Date Last Treatment Date Treating Clinician Comments Source No known active problems No known active problems Disease [facility] Allergies, Adverse Reactions, Alerts Allergy Name Allergy Type Status Severity Reaction(s) Onset Date Inactive Date Treating Clinician Comments Source No Known Allergie s DA Active U 2022-09 00:00: 00 [facility] NO KNOWN ALLERGIE S Drug Class Active [facility] Social History Social Habit Start Date Stop Date Quantity Comments Source Sexual orientation [facility] History of tobacco use Cigarette Smoker [facility] Tobacco use and exposure 2023-09-06 00:00:00 2023-09-06 00:00:00 Smokeless tobacco non-user [facility] Alcohol intake 2023-09-06 00:00:00 2023-09-06 00:00:00 Current drinker of alcohol (finding) [facility] History of Social function 2023-09-06 00:00:00 2023-09-06 00:00:00 [facility] Alcohol Comment 2023-09-06 00:00:00 2023-09-06 00:00:00 occasionally [facility] Exposure to SARS-CoV-2 (event) 2022-02-06 00:00:00 2022-02-16 20:15:00 Not sure [facility] Sex Assigned At 1985 00:00:00 1985 00:00:00 [facility] Smoking Status Start Date Stop Date Source Tobacco smoking consumption unknown [facility] Occasional tobacco smoker 2023-09-06 00:00:00 [facility] Medications Ordered Medication Name Filled Medication Name Start Date Stop Date Current Medication? Ordering Clinician Indication Dosage Frequency Signature (SIG) Comments Components Source benzonatate (TESSALON PERLES) 100 mg capsule 09-06 00:00: 00 Yes [id number] 100mg Take 1 capsule by mouth every 8 (eight) hours as needed for Cough. [facility] albuterol 90 mcg/actuati on inhaler 09-06 00:00: 00 Yes [id number] 2{puff} Inhale 2 Puffs every 6 (six) hours as needed for Wheezing or Shortness of Breath. [facility] predniSONE 20 mg tablet 09-06 00:00: 00 09-12 05:59 :00 No [id number] 20mg Take 1 tablet by mouth in the morning for 5 days. [facility] TAKE 1 CAPSULE BY MOUTH TWICE A DAY FOR 5 DAYS 2022-09 00:00: 00 Yes Dony Aguilar TAKE 1 TABLET ORALLY TWICE DAILY NEEDED FOR PAIN 2022-09 00:00: 00 Yes Doyn Aguilar KETOROLAC 10MG 2021-09 0 00:00: 00 Yes [id number] Dony Aguilar CYCLOBENZAP R 10MG 2021-09 0 00:00: 00 Yes [id number] Dony Aguilar ONDANSETRON 8MG 2021-09 0 00:00: 00 Yes [id number] Dony Aguilar TAKE 1 TABLET BY MOUTH EVERY 8 HOURS NEEDED FOR NAUSEA 2021-09 00:00: 00 Yes Dony Aguilar TAKE 1 CAPSULE BY MOUTH EVERY DAY 1/2 HOUR FOLLOWING THE SAME MEAL EACH DAY 2021-09 00:00: 00 Yes Dony Aguilar TAKE 1 TABLET BY MOUTH EVERY 8 HOURS NEEDED FOR MUSCLE SPASMS 2021-09 00:00: 00 Yes Dony Aguilar meclizine (TRAVEL-EAS E (MECLIZINE) ) tablet 25 mg 02-17 01:45: 00 02-17 01:14 :00 No 25mg 25 mg, Oral, ONCE, 1 dose, On 02/16/22 at 2045, MIRTA [facility] meclizine 25 mg tablet 02-16 00:00: 00 Yes [id number] 25mg Take 1 tablet by mouth every 6 (six) hours. [facility] prednisone 20 mg tablet 2019-09 00:00: 00 Yes mg Dony Aguilar gabapentin 400 mg capsule 2019-09 00:00: 00 Yes 1mg Dony Aguilar ibuprofen 800 mg tablet 02-23 00:00: 00 Yes 1mg Dony Aguilar Immunizations Ordered Immunization Name Filled Immunization Name Date Status Comments Source Tdap Tdap 2024-07-05 00:00:00 Completed Dony Aguilar Moderna COVID-19 Vaccine Moderna COVID-19 Vaccine 2021-01-12 00:00:00 Completed Dony Aguilar Moderna COVID-19 Vaccine Moderna COVID-19 Vaccine 2020-12-08 00:00:00 Completed Dony Aguilar Vital Signs Vital Name Observation Time Observation Value Comments S ester Systolic blood pressure 2023-09-06 19:27:00 137 mm[Hg] [facility] Diastolic blood pressure 2023-09-06 19:27:00 80 mm[Hg] [facility] Heart rate 2023-09-06 19:27:00 75 /[facility] Body temperature 2023-09-06 19:27:00 36.56 Velma [facility] Respiratory rate 2023-09-06 19:27:00 18 /min [facility] Body weight 2023-09-06 19:27:00 75.932 kg [facility] BMI 2023-09-06 19:27:00 26.22 kg/m2 [facility] Oxygen saturation in Arterial blood by Pulse oximetry 2023-09-06 19:27:00 97 /min [facility] Systolic blood pressure 2022-02-17 01:31:00 138 mm[Hg] [facility] Diastolic blood pressure 2022-02-17 01:31:00 88 mm[Hg] [facility] Heart rate 2022-02-17 01:31:00 73 /min [facility] Respiratory rate 2022-02-17 01:31:00 16 /min [facility] Oxygen saturation in Arterial blood by Pulse oximetry 2022-02-17 01:31:00 100 /min [facility] Body temperature 2022-02-16 23:16:00 37 Velma [facility] Body height 2022-02-16 23:16:00 170.2 cm [facility] Body weight 2022-02-16 23:16:00 77.111 kg [facility] BMI 2022-02-16 23:16:00 26.63 kg/m2 [facility] Respiratory Rate 2024-07-05 15:52:00 Dony Ryan Jeff BP Systolic 2024-07-05 15:52:00 132 mm[Hg] Sami darius Ryan Jeff BP Diastolic 2024-07-05 15:52:00 77 mm[Hg] Michael phen F Jeff Weight Measured 2024-07-05 15:52:00 164.00 pounds Dony F Jeff Height Measured 2024-07-05 15:52:00 67.00 inches Dony F Jeff Body Temperature 2024-07-05 15:52:00 98.00 degrees Dony F Jeff Heart Rate 2024-07-05 15:52:00 75.00 /min Iman en F Jeff Heart Rate 2022-10-25 09:48:00 59.00 /min Iman en F Jeff Respiratory Rate 2022-10-25 09:48:00 16.00 /min Dony F Jeff BP Systolic 2022-10-25 09:48:00 109 mm[Hg] Step hen F Jeff BP Diastolic 2022-10-25 09:48:00 71 mm[Hg] Michael phen F Jeff Weight Measured 2022-10-25 09:48:00 172.60 pounds Dony F Jeff Height Measured 2022-10-25 09:48:00 67.00 inches Dony F Jeff Body Temperature 2022-10-25 09:48:00 98.10 degrees Dony F Jeff BP Systolic 2021-06-29 15:46:00 117 mm[Hg] Step hen F Jeff BP Diastolic 2021-06-29 15:46:00 76 mm[Hg] Michael phen F Jeff Weight Measured 2021-06-29 15:46:00 176.80 pounds Dony F Jeff Height Measured 2021-06-29 15:46:00 67.00 inches Dony F Jeff Body Temperature 2021-06-29 15:46:00 98.00 degrees Dony F Jeff Heart Rate 2021-06-29 15:46:00 66.00 /min Iman en F Jeff Respiratory Rate 2021-06-29 15:46:00 Dony F Jeff BP Systolic 2021-03-09 16:25:00 103 mm[Hg] Step hen F Jeff BP Diastolic 2021-03-09 16:25:00 66 mm[Hg] Michael phen F Jeff Weight Measured 2021-03-09 16:25:00 179.20 pounds Dony F Jeff Height Measured 2021-03-09 16:25:00 67.00 inches Dony F Jeff Body Temperature 2021-03-09 16:25:00 98.40 degrees Dony F Jeff Heart Rate 2021-03-09 16:25:00 72.00 /min Iman en F Jeff Respiratory Rate 2021-03-09 16:25:00 19.00 /min Dony F Jeff BP Systolic 2021-03-06 13:31:00 131 mm[Hg] Step hen F Jeff BP Diastolic 2021-03-06 13:31:00 80 mm[Hg] Michael phen F Jeff Weight Measured 2021-03-06 13:31:00 184.80 pounds Dony F Jeff Height Measured 2021-03-06 13:31:00 Dony F Jeff Body Temperature 2021-03-06 13:31:00 98.30 degrees Dony F Jeff Heart Rate 2021-03-06 13:31:00 65.00 /min Iman en F Jeff Respiratory Rate 2021-03-06 13:31:00 Dony F Jeff BP Systolic 2020-06-20 13:15:00 118 mm[Hg] Step hen F Jeff BP Diastolic 2020-06-20 13:15:00 70 mm[Hg] Michael phen F Jeff Weight Measured 2020-06-20 13:15:00 175.80 pounds Dony F Jeff Height Measured 2020-06-20 13:15:00 67.00 inches Dony F Jeff Body Temperature 2020-06-20 13:15:00 97.80 degrees Dony F Jeff Heart Rate 2020-06-20 13:15:00 77.00 /min Iman en F Jeff Respiratory Rate 2020-06-20 13:15:00 16.00 /min Dony F Jeff BP Systolic 2020-06-13 13:25:00 137 mm[Hg] Step hen F Jeff BP Diastolic 2020-06-13 13:25:00 76 mm[Hg] Michael phen F Jeff Weight Measured 2020-06-13 13:25:00 176.00 pounds Dony F Jeff Height Measured 2020-06-13 13:25:00 67.00 inches Dony F Jeff Body Temperature 2020-06-13 13:25:00 99.10 degrees Dony F Jeff Heart Rate 2020-06-13 13:25:00 69.00 /min Iman en F Jeff Respiratory Rate 2020-06-13 13:25:00 16.00 /min Dony F Jeff BP Systolic 2020-02-24 16:57:00 115 mm[Hg] Step hen F Jeff BP Diastolic 2020-02-24 16:57:00 71 mm[Hg] Michael phen F Jeff Weight Measured 2020-02-24 16:57:00 182.80 pounds Dony F Jeff Height Measured 2020-02-24 16:57:00 67.00 inches Dony F Jeff Body Temperature 2020-02-24 16:57:00 98.10 degrees Dony F Jeff Heart Rate 2020-02-24 16:57:00 66.00 /min Iman en F Jeff Respiratory Rate 2020-02-24 16:57:00 Dony F Jeff BP Systolic 2017-07-18 17:08:00 118 mm[Hg] Step hen F Jeff BP Diastolic 2017-07-18 17:08:00 74 mm[Hg] Michael phen F Jeff Weight Measured 2017-07-18 17:08:00 168.20 pounds Dony F Jeff Height Measured 2017-07-18 17:08:00 67.00 inches Dony F Jeff Body Temperature 2017-07-18 17:08:00 98.20 degrees Dony F Jeff Heart Rate 2017-07-18 17:08:00 64.00 /min Iman en F Jeff Respiratory Rate 2017-07-18 17:08:00 16.00 /min Dony F Jeff BP Systolic 2015-04-25 08:42:00 135 mm[Hg] Step hen F Jeff BP Diastolic 2015-04-25 08:42:00 77 mm[Hg] Michael phen F Jeff Weight Measured 2015-04-25 08:42:00 165.00 pounds Dony F Jeff Height Measured 2015-04-25 08:42:00 26.38 inches Dony F Jeff Body Temperature 2015-04-25 08:42:00 98.30 degrees Dony F Jeff Heart Rate 2015-04-25 08:42:00 56.00 /min Iman en F Jeff Respiratory Rate 2015-04-25 08:42:00 16.00 /min Dony F Jeff Procedures Procedure Date / Time Performed Performing Clinician Source ASSIGNMENT OF BENEFITS 2023-09-06 19:12:03 Docto r Unassigned, [place] [facility] CREATINE KINASE 2022-02-16 23:35:00 [facility] TROPONIN I 2022-02-16 23:35:00 Venkatesh Noel [facility] COMP. METABOLIC PANEL ([id number]) 2022-02-16 23:35:00 Venkatesh Noel [facility] CBC WITH DIFF 2022-02-16 23:35:00 Venkatesh Noel [facility] PROTHROMBIN TIME / INR 2022-02-16 23:35:00 Yudi Noel [facility] URINALYSIS 2022-02-16 23:35:00 Venkatesh Noel [facility] N-TERMINAL PRO-BNP 2022-02-16 23:35:00 Maribell Noel [facility] Encounters Start Date/Time End Date/Time Encounter Type Admission Type Attending [facility] Care Facility Care Department Encounter ID Source 2024-07-05 15:49:43 2024-07-05 15:49:43 Outpatient SFA [facility] [id number] Dony Aguilar 2024-07-05 00:00:00 2024-07-05 00:00:00 Outpatient Visit SFA [id number] Dony Aguilar 2023-09-06 13:15:00 2023-09-06 13:30:00 Urgent Care Obi-Zina , Mathew Unknown, Attending [facility] 1..114 350.1.13.10 [id number] [id number] [facility] 2023-09-06 13:15:00 2023-09-06 13:15:00 Outpatient R OBI-ZINA , MATEHW OBI-ZINA , MAHTEW [facility] [id number] [facility] 2023-09-06 00:00:00 2023-09-06 00:00:00 Orders Only Doctor Unassigned, [place] [facility] 1.0.114 350.1.13.10 4.2.7.2.686 [id number] [facility] 2023-06-13 17:46:00 2023-06-13 19:12:00 Emergency EM Jamari Spicer HCACL AERS [id number] [facility] 2022-10-25 09:45:48 2022-10-25 09:45:48 Outpatient SFA [facility] [id number] Dony Aguilar 2022-02-16 18:20:00 2022-02-16 20:36:00 Emergency X VENKATESH NOEL [facility] ERT [id number] [facility] 2022-02-16 18:20:00 2022-02-16 20:36:00 Emergency Venkatesh Noel [facility] [id number] 350.1.13.10 4.2.7.2.686 [id number] [facility] 2020-03-15 00:00:00 2020-03-15 00:00:00 Telephone [facility] [id number] 350.1.13.10 4.2.7.2.686 [id number] [facility] 2020-03-15 00:00:00 2020-03-15 00:00:00 Telephone [facility] [id number] 350.1.13.10 4.2.7.2.686 [id number] 2020-03-14 16:48:50 2020-03-14 17:08:50 Laboratory Only Lab, Adc Fam Pob I [facility] [address] .840.114 350.1.13.10 4.2.7.2.686 [id number] [facility] 2020-03-14 16:48:50 2020-03-14 17:08:50 Laboratory Only Lab, Adc Fam Pob I [facility] .840.114 350.1.13.10 4.2.7.2.686 [id number] 2020-03-14 16:40:00 2020-03-14 16:40:[address] [facility] [id number] [facility] Results Test Description Test Time Test Comments Results Resul t Comments Source - CT ABD PELVIS W/CONT 2023-06-13 19:05:00 [facility] : 1985 Sex: M Name: DURAN HAUSER Fabricio FSED : 1985 Age/S: 37 / M [address] [facility] Unit #: [id number] Loc: [place] [address] Phys: Radu Spicerquincy ROY Acct: [id number] Dis Date: Status: REG ER PHONE #: Exam Date: 06/13/2023 2239 FAX #: Reason: abd pain just right of midline EXAMS: CPT CODE: [id number] CT ABD PELVIS W/CONT 18525 EXAM: - CT ABD PELVIS W/CONT LOCATION: H57 HISTORY: 37 years-year old Male with abd pain just right of midline TECHNIQUE: IV contrast was given, no oral contrast was given. Portal venous phase - abdomen. No delayed phase images were obtained.. Reconstructions - coronal and sagittal planes. Automated exposure reduction (Auto mA/Smart mA) was utilized in compliance with ACR Image Wisely. COMPARISON: None FINDINGS: Unless otherwise specified, incidental findings do not require dedicated imaging follow up. Thoracic: Included images of the lower chest demonstrate no abnormalities. Hepatobiliary: The liver is normal without focal lesion. The gallbladder is normal. No biliary dilation. Pancreas: Normal. Spleen: Normal. Adrenals: Normal. Genitourinary: A 2 mm nonobstructing stone is seen in the right kidney. No hydronephrosis. The bladder is well distended and unremarkable. The prostate is unremarkable. Gastrointestinal: No bowel obstruction or perienteric inflammation. The appendix is normal. Lymphatics: No enlarged lymph nodes by CT size criteria. Vascular: The aorta is normal in appearance. No evidence of aneurysm. Bones/Soft Tissues: No acute osseous findings. No ventral hernias. Peritoneum/Other: No free air. No free fluid. PAGE 1 Signed Report (CONTINUED) Name: DURAN HAUSER FSED : 1985 Age/S: 37 / M [address] [facility]. Unit #: [id number] Loc: [place] [address] Phys: Jamari Spicer DO Acct: [id number] Dis Date: Status: REG ER PHONE #: Exam Date: 06/13/2023 2382 FAX #: Reason: abd pain just right of midline EXAMS: CPT CODE: [id number] CT ABD PELVIS W/CONT 71193 (Continued) IMPRESSION: No acute findings in the abdomen/pelvis. at 1905 Reported and signed by: Duran Coleman M.D. CC: Jamari Spicer DO Technologist:RT Refugio(Yudith)(CT) CTDI: DLP: Trnscb Date/Time: 06/13/2023 (1904) [id number] Orig Print D/T: S: 06/13/2023 (1908) PAGE 2 Signed Report COMPREHENSIVE METABOLIC [id number] 18:32:00* Test Item Value Reference Range Interpretation Comme nts POC SODIUM (test code = AMENA) 138 mmol/L 134-147 N Testing performe d at:[facility] NETO Fabricio [address] [facility], [place], [place] [address] POC POTASSIUM (test code = EDK) 4.0 mmol/L 3.4-5.8 N POC CHLORIDE (test code = EDCL) 105 mmol/L 100-108 N POC TCO2 (test code = EDTCO2) 30 mmol/L 24-30 N POC ANION GAP (test code = EDAGAP) 3 0-20 N POC BUN (test code = EDBUN) 12 mg/dL 3-25 N POC CREATININE (test code = EDCRE) 1.1 mg/dL 0.6-1.3 N POC GLUCOSE (test code = EDGLUC) 97 mg/dL 70-110 N POC CALCIUM (test code = EDCA) 9.4 mg/dL 7.0-11.0 N POC eGFR (test code = EDGFR) 89 mL/min See_Comment eGFR is not calc ulated if age <18 yrs, if the sex in EHR islisted as unknown or the creatinine level is below assayrange.This result value is determined by the eGFR 2020 CKD-EPIformula using serum creatinine, age and sex, excluding arace coefficient. The assay for creatinine is traceable tothe IDWV reference method. Chronic kidney disease (CKD) maynot be detectable based solely on creatinine levels. A eGFR> 60 does not rule out mild renal disease. To distinguishnormal renal function from mild renal disease, furtherlaboratory testing may be required. [Automated message] The system which generated this result transmitted reference range: >or=60. The reference range was not used to interpret this result as normal/abnormal. POC ALBUMIN (test code = EDALB) 3.8 g/dL 3.5-5.0 N POC TOTAL PROTEIN (test code = EDTP) 7.3 g/dL 5.0-8.0 N POC BILIRUBIN TOTAL (test code = EDTBIL) 0.6 mg/dL 0.0-1.0 N POC AST (test code = EDAST) 32 U/L 15-37 N POC ALT (test code = EDALT) 24 U/L 30-65 L POC ALKALINE PHOSPHATASE (test code = EDALP) 70 U/L 20-125 N COMPLETE BLOOD COUNT (CBC)2023-06-13 18:18:00* Test Item Value Reference Range Interpretation Comme nts POC WHITE BLOOD CELL (test code = EDWBC) 7.2 10 3/uL 3.9-9.4 N Testing perf ormed at:[facility] [place] Fabricio [address] [place], [place] [address] POC RED BLOOD CELL (test code = EDRBC) 4.94 10 6/uL 4.14-5.52 N POC HEMOGLOBIN (test code = EDHGB) 14.6 g/dL 11.9-16.7 N POC HEMATOCRIT (test code = EDHCT) 43.6 % 36.1-49.4 N POC MEAN CELL VOLUME (test code = EDMCV) 88.3 fL 83.2-96.0 N POC MEAN CELL HEMOGLOBIN (test code = EDMCH) 29.6 pg 27.1-32.5 N POC MEAN CELL HGB CONC (test code = EDMCHC) 33.5 g/dL 31.0-35.8 N POC PLATELET COUNT (test code = EDPLT) 325 10 3/uL 155-330 N POC RED CELL DISTRIB WIDTH (test code = EDRDW-CV) 13.5 % 12.0-15.0 N POC LYMPHOCYTES % (test code = EDLYM%) 32.1 % 16.8-42.5 N POC MIXED CELLS % (test code = EDMXD%) 7.6 % 3.2-16.9 N POC NEUTROPHILS % (test code = EDNEUT%) 60.3 % 46.4-74.7 N POC LYMPHOCYTES # (test code = EDLYM#) 2.30 k/mm3 0.9-3.0 N POC MIXED CELLS # (test code = EDMXD#) 0.5 10 3/uL 0.2-1.1 N POC NEUTROPHILS # (test code = EDNEUT#) 4.40 10 3/uL 2.2-6.4 N POC MEAN PLATELET VOLUME (test code = EDMPV) 10.2 fL 8.7-12.6 N COMPREHENSIVE METABOLIC [id number] 00:00:00* Test Item Value Reference Range Interpretation Comme nts GLUCOSE (test code = 2217) 95 MG/DL BUN (test code = 2208) 15 MG/DL CREATININE (test code = 2214) 1.05 MG/DL eGFR (2020 CKD-EPI) (test co de = 35200) 94 ML/MIN/1.73 CALC BUN/CREAT (test code = 2235) 14 RATIO SODIUM (test code = 2231) 143 MEQ/L POTASSIUM (test code = 2228) 5.6 MEQ/L CHLORIDE (test code = 2215) 106 MEQ/L CARBON DIOXIDE (test code = 2206) 27 MEQ/L CALCIUM (test code = 2209) 10.0 MG/DL PROTEIN, TOTAL (test code = 2229) 7.6 G/DL ALBUMIN (test code = 2201) 5.1 G/DL CALC GLOBULIN (test code = 2240) 2.5 G/DL CALC A/G RATIO (test code = 2234) 2.0 RATIO BILIRUBIN, TOTAL (test code = 2207) 0.6 MG/DL ALKALINE PHOSPHATASE (test code = 2204) 77 U/L AST (test code = 2218) 20 U/L ALT (test code = 2219) 24 U/L Dony Davis [facility] W/AUTO [id number] 00:00:00* Test Item Value Reference Range Interpretation Comme nts WBC (test code = 1001) 6.9 K/UL RBC (test code = 1002) 5.38 M/UL HEMOGLOBIN (test code = 1003) 15.9 G/DL HEMATOCRIT (test code = 1004) 48.3 % MCV (test code = 1005) 89.8 fL MCH (test code = 1006) 29.6 PG MCHC (test code = 1007) 32.9 G/DL RDW (test code = 1038) 12.8 % NEUTROPHILS (test code = 1008) 53.8 % BANDS (test code = 1009) DNR % LYMPHOCYTES (test code = 1010) 35.2 % MONOCYTES (test code = 1011) 7.4 % EOSINOPHILS (test code = 1012) 1.9 % BASOPHILS (test code = 1013) 1.3 % IMMATURE GRANULOCYTES (test code = 1036) 0.4 % METAMYELOCYTES (test code = 1061) DNR % MYELOCYTES (test code = 1062) DNR % PROMYELOCYTES (test code = 1063) DNR % BLASTS (test code = 1064) DNR % NUCLEATED RBCS (test code = 1065) 0.0 /100WBC'S PLATELET COUNT (test code = 1015) 357 K/UL ABSOLUTE NEUTROPHILS (test c ode = 1066) 3.68 K/UL ABSOLUTE LYMPHOCYTES (test c ode = 1067) 2.41 K/UL ABSOLUTE MONOCYTES (test cod e = 1068) 0.51 K/UL ABSOLUTE EOSINOPHILS (test c ode = 1040) 0.13 K/UL ABSOLUTE BASOPHILS (test cod e = 1069) 0.09 K/UL ABS IMMATURE GRANULOCYTES (t est code = 1020) 0.03 K/UL ABS NUCLEATED RBCS (test cod e = 44232) 0.00 K/UL COMMENTS (test code = 1016) DNR Dony LaneH, THIRD [id number] 00:00:00* Test Item Value Reference Range Interpretation Comme renata TSH, THIRD GENERATION (test code = 2821) 1.240 UIU/ML Dony AguilarLIPID [id number] 00:00:00* Test Item Value Reference Range Interpretation Comme nts CHOLESTEROL (test code = 2210) 201 MG/DL TRIGLYCERIDES (test code = 2232) 53 MG/DL HDL CHOLESTEROL (test code = 2220) 59 MG/DL CALC LDL CHOL (test code = 2237) 128 MG/DL RISK RATIO LDL/HDL (test cod e = 2238) 2.17 RATIO Dony AguilarHEMOGLOBIN [id number] 00:00:00* Test Item Value Reference Range Interpretation Comme renata HEMOGLOBIN A1c (test code = 45645) 5.7 % Dony AguilarTROPONIN [id number] 00:23:42* Test Item Value Reference Range Interpretation Comments TROPONIN I (test code = 8451316556) 0.001 ng/mL See_Comment [Automated message] The system which generated this result transmitted reference range: <=0.034. The reference range was not used to interpret this result as normal/abnormal. REJI (test code = REJI) Reference (Normal) [...] to patient's use of biotin. Lab Interpretation (test code = 64205-5) [id number] 00:20:17* Test Item Value Reference Range Interpretation Comme nts NT-proBNP (test code = 6716450999) 25 pg/mL See_Comment [Automated message] The system which generated this result transmitted reference range: <=125. The reference range was not used to interpret this result as normal/abnormal. REJI (test code = REJI) Biotin has been reported to cause a negative bias, interpret results relative to patient's use of biotin. Lab Interpretation (test code = 13420-1) Normal [facility]. METABOLIC PANEL (19977)2022-02-17 00:11:41* Test Item Value Reference Range Interpretation Comme nts NA (test code = 4772934445) 141 mmol/L 135-145 K (test code = 2294903439) 4.1 mmol/L 3.5-5.0 CL (test code = 0098196853) 103 mmol/L 98-108 CO2 TOTAL (test code = 8281706216) 25 mmol/L 23-31 AGAP (test code = 0890083822) 2-16 BUN (test code = 0452001078) 10 mg/dL 7-23 GLUCOSE (test code = 2234282547) 122 mg/dL 70-110 H CREATININE (test code = 4070383907) 0.93 mg/dL 0.60-1.25 TOTAL BILI (test code = 6596729521) 0.6 mg/dL 0.1-1.1 CALCIUM (test code = 4945573689) 9.9 mg/dL 8.6-10.6 T PROTEIN (test code = 4310174834) 7.7 g/dL 6.3-8.2 ALBUMIN (test code = 4562986733) 4.9 g/dL 3.5-5.0 ALK PHOS (test code = 2332037488) 71 U/L 34-122 ALTv (test code = 1742-6) 35 U/L 5-50 AST(SGOT) (test code = 4958261693) 34 U/L 13-40 eGFR (test code = 8421884498) mL/min/1.73m2 REJI (test code = REJI) Association of [...] or abnormalities in imaging tests). Lab Interpretation (test code = 70719-5) [id number]* Test Item Value Reference Range Interpretation Comme nts CK (test code = 0456362423) 62 U/L 33-194 Lab Interpretation (test cod e = 63796-3) Normal [facility] [facility] / [id number] 00:07:00* Test Item Value Reference Range Interpretation Comme nts PROTIME PATIENT (test code = 5964-2) See_Comment [[employer]] The system which generated this result transmitted reference range: 12.0 - 14.7 Seconds. The reference range was not used to interpret this result as normal/abnormal. INR (test code = 6301-6) Normal INR <1.1; Warfarin Therapeutic range 2.0 to 3.0 or 2.5 to 3.5, depending upon the indications. Lab Interpretation (test code = 10166-6) [facility] [id number] 23:58:38* Test Item Value Reference Range Interpretation Comme nts WBC (test code = 6690-2) See_Comment [[employer]] The system which generated this result transmitted reference range: 4.20 - 10.70 10*3/?L. The reference range was not used to interpret this result as normal/abnormal. RBC (test code = 789-8) See_Comment [Automated messa ge] The system which generated this result transmitted reference range: 4.26 - 5.52 10*6/?L. The reference range was not used to interpret this result as normal/abnormal. HGB (test code = 718-7) 15.1 g/dL 12.2-16.4 HCT (test code = 4544-3) 44.7 % 38.4-49.3 MCV (test code = 787-2) 89.4 fL 81.7-95.6 MCH (test code = 785-6) 30.2 pg 26.1-32.7 MCHC (test code = 786-4) 33.8 g/dL 31.2-35.0 RDW-SD (test code = 18197-1) 41.9 fL 38.5-51.6 RDW-CV (test code = 788-0) 12.7 % 12.1-15.4 PLT (test code = 777-3) See_Comment H [Automated messa ge] The system which generated this result transmitted reference range: 150 - 328 10*3/?L. The reference range was not used to interpret this result as normal/abnormal. MPV (test code = 10438-5) 9.7 fL 9.8-13.0 L NRBC/100 WBC (test code = 9106918877) See_Comment [Automated CELLFOR ssage] The system which generated this result transmitted reference range: 0.0 - 10.0 /100 WBCs. The reference range was not used to interpret this result as normal/abnormal. NRBC x10^3 (test code = 5844540737) <0.01 See_Comment [Automated messa ge] The system which generated this result transmitted reference range: 10*3/?L. The reference range was not used to interpret this result as normal/abnormal. GRAN MAT (NEUT) % (test code = 770-8) 74.3 % IMM GRAN % (test code = 0882296868) 0.60 % LYMPH % (test code = 736-9) 18.4 % MONO % (test code = 5905-5) 5.3 % EOS % (test code = 713-8) 0.6 % BASO % (test code = 706-2) 0.8 % GRAN MAT x10^3(ANC) (test code = 3794918044) 7.88 10*3/uL 1.99-6.95 H IMM GRAN x10^3 (test code = 7246347715) 0.06 10*3/uL 0.00-0.06 LYMPH x10^3 (test code = 731-0) 1.95 10*3/uL 1.09-3.23 MONO x10^3 (test code = 742-7) 0.56 10*3/uL 0.36-1.02 EOS x10^3 (test code = 711-2) 0.06 10*3/uL 0.06-0.53 BASO x10^3 (test code = 704-7) 0.09 10*3/uL 0.01-0.09 Lab Interpretation (test code = 56121-7) [facility]normal [facility] [id number] 00:00:00* Test Item Value Reference Range Interpretation Comme nts GLUCOSE (test code = 2217) 93 MG/DL BUN (test code = 2208) 10 MG/DL CREATININE (test code = 2214) 1.06 MG/DL eGFR AMER. (test cod e = 20638) 105 ML/MIN/1.73 eGFR NON- AMER. (test code = 22054) 90 ML/MIN/1.73 CALC BUN/CREAT (test code = 2235) 9 RATIO SODIUM (test code = 2231) 139 MEQ/L POTASSIUM (test code = 2228) 4.3 MEQ/L CHLORIDE (test code = 2215) 98 MEQ/L CARBON DIOXIDE (test code = 2206) 19 MEQ/L CALCIUM (test code = 2209) 9.9 MG/DL PROTEIN, TOTAL (test code = 2229) 7.6 G/DL ALBUMIN (test code = 2201) 4.9 G/DL CALC GLOBULIN (test code = 2240) 2.7 G/DL CALC A/G RATIO (test code = 2234) 1.8 RATIO BILIRUBIN, TOTAL (test code = 2207) 0.5 MG/DL ALKALINE PHOSPHATASE (test code = 2204) 76 U/L AST (test code = 2218) 24 U/L ALT (test code = 2219) 27 U/L Dony AguilarLIPID [id number] 00:00:00* Test Item Value Reference Range Interpretation Comme nts CHOLESTEROL (test code = 2210) 198 MG/DL TRIGLYCERIDES (test code = 2232) 110 MG/DL HDL CHOLESTEROL (test code = 2220) 60 MG/DL CALC LDL CHOL (test code = 2237) 116 MG/DL RISK RATIO LDL/HDL (test cod e = 2238) 1.93 RATIO Dony [id number] 00:00:00* Test Item Value Reference Range Interpretation Comme nts TSH, THIRD GENERATION (test code = 2821) 2.040 UIU/ML Dony AguilarCBC W/AUTO [id number] 00:00:00* Test Item Value Reference Range Interpretation Comme nts WBC (test code = 1001) 9.5 K/UL RBC (test code = 1002) 5.16 M/UL HEMOGLOBIN (test code = 1003) 15.1 G/DL HEMATOCRIT (test code = 1004) 44.1 % MCV (test code = 1005) 85.5 fL MCH (test code = 1006) 29.3 PG MCHC (test code = 1007) 34.2 G/DL RDW (test code = 1038) 12.8 % NEUTROPHILS (test code = 1008) 55.2 % LYMPHOCYTES (test code = 1010) 33.9 % MONOCYTES (test code = 1011) 7.0 % EOSINOPHILS (test code = 1012) 2.8 % BASOPHILS (test code = 1013) 0.7 % IMMATURE GRANULOCYTES (test code = 1036) 0.4 % NUCLEATED RBCS (test code = 1065) 0.0 /100WBC'S PLATELET COUNT (test code = 1015) 333 K/UL ABSOLUTE NEUTROPHILS (test c ode = 1066) 5.23 K/UL ABSOLUTE LYMPHOCYTES (test c ode = 1067) 3.22 K/UL ABSOLUTE MONOCYTES (test cod e = 1068) 0.66 K/UL ABSOLUTE EOSINOPHILS (test c ode = 1040) 0.27 K/UL ABSOLUTE BASOPHILS (test cod e = 1069) 0.07 K/UL ABS IMMATURE GRANULOCYTES (t est code = 1020) 0.04 K/UL ABS NUCLEATED RBCS (test cod e = 38325) 0.00 K/UL Dony AguilarHEMOGLOBIN [id number] 00:00:00* Test Item Value Reference Range Interpretation Comme renata HEMOGLOBIN A1c (test code = 69450) 5.8 % Dony AguilarBgyhikW-[id number] 00:00:00* Test Item Value Reference Range Interpretation Comme nts D-DIMER (test code = 1405) 0.32 UG/MLFEU Dony AguilarCOMPREHENSIVE METABOLIC [id number] 00:00:00* Test Item Value Reference Range Interpretation Comme nts GLUCOSE (test code = 2217) 141 MG/DL BUN (test code = 2208) 9 MG/DL CREATININE (test code = 2214) 0.96 MG/DL eGFR AMER. (test cod e = 98948) 118 ML/MIN/1.73 eGFR NON- AMER. (test code = 83015) 102 ML/MIN/1.73 CALC BUN/CREAT (test code = 2235) 9 RATIO SODIUM (test code = 2231) 141 MEQ/L POTASSIUM (test code = 2228) 4.8 MEQ/L CHLORIDE (test code = 2215) 99 MEQ/L CARBON DIOXIDE (test code = 2206) 25 MEQ/L CALCIUM (test code = 2209) 10.1 MG/DL PROTEIN, TOTAL (test code = 2229) 7.4 G/DL ALBUMIN (test code = 2201) 4.6 G/DL CALC GLOBULIN (test code = 2240) 2.8 G/DL CALC A/G RATIO (test code = 2234) 1.6 RATIO BILIRUBIN, TOTAL (test code = 2207) 0.6 MG/DL ALKALINE PHOSPHATASE (test code = 2204) 72 U/L AST (test code = 2218) 29 U/L ALT (test code = 2219) 38 U/L Dony AguilarCBC W/AUTO [id number] 00:00:00* Test Item Value Reference Range Interpretation Comme nts WBC (test code = 1001) 8.1 K/UL RBC (test code = 1002) 5.16 M/UL HEMOGLOBIN (test code = 1003) 15.3 G/DL HEMATOCRIT (test code = 1004) 45.1 % MCV (test code = 1005) 87.4 fL MCH (test code = 1006) 29.7 PG MCHC (test code = 1007) 33.9 G/DL RDW (test code = 1038) 13.5 % NEUTROPHILS (test code = 1008) 59.7 % LYMPHOCYTES (test code = 1010) 29.3 % MONOCYTES (test code = 1011) 6.3 % EOSINOPHILS (test code = 1012) 2.8 % BASOPHILS (test code = 1013) 1.0 % IMMATURE GRANULOCYTES (test code = 1036) 0.9 % NUCLEATED RBCS (test code = 1065) 0.0 /100WBC'S PLATELET COUNT (test code = 1015) 384 K/UL ABSOLUTE NEUTROPHILS (test c ode = 1066) 4.86 K/UL ABSOLUTE LYMPHOCYTES (test c ode = 1067) 2.38 K/UL ABSOLUTE MONOCYTES (test cod e = 1068) 0.51 K/UL ABSOLUTE EOSINOPHILS (test c ode = 1040) 0.23 K/UL ABSOLUTE BASOPHILS (test cod e = 1069) 0.08 K/UL ABS IMMATURE GRANULOCYTES (t est code = 1020) 0.07 K/UL ABS NUCLEATED RBCS (test cod e = 45810) 0.00 K/UL Dony AguilarHEMOGLOBIN A1c [ADDED]2021-03-07 00:00:00* Test Item Value Reference Range Interpretation Comme nts HEMOGLOBIN A1c (test code = 43502) 5.7 % Dony AguilarLIPID [id number] 00:00:00* Test Item Value Reference Range Interpretation Comme nts CHOLESTEROL (test code = 2210) 190 MG/DL TRIGLYCERIDES (test code = 2232) 145 MG/DL HDL CHOLESTEROL (test code = 2220) 53 MG/DL CALC LDL CHOL (test code = 2237) 111 MG/DL RISK RATIO LDL/HDL (test cod e = 2238) 2.09 RATIO Dony AguilarCOMPREHENSIVE METABOLIC [id number] 00:00:00* Test Item Value Reference Range Interpretation Comme nts GLUCOSE (test code = 2217) 102 MG/DL BUN (test code = 2208) 10 MG/DL CREATININE (test code = 2214) 0.98 MG/DL eGFR AMER. (test cod e = 97897) 116 ML/MIN/1.73 eGFR NON- AMER. (test code = 16402) 100 ML/MIN/1.73 CALC BUN/CREAT (test code = 2235) 10 RATIO SODIUM (test code = 2231) 139 MEQ/L POTASSIUM (test code = 2228) 4.4 MEQ/L CHLORIDE (test code = 2215) 100 MEQ/L CARBON DIOXIDE (test code = 2206) 20 MEQ/L CALCIUM (test code = 2209) 9.6 MG/DL PROTEIN, TOTAL (test code = 2229) 7.4 G/DL ALBUMIN (test code = 2201) 4.7 G/DL CALC GLOBULIN (test code = 2240) 2.7 G/DL CALC A/G RATIO (test code = 2234) 1.7 RATIO BILIRUBIN, TOTAL (test code = 2207) 0.3 MG/DL ALKALINE PHOSPHATASE (test code = 2204) 80 U/L AST (test code = 2218) 17 U/L ALT (test code = 2219) 32 U/L Dony AguilarCBC W/AUTO [id number] 00:00:00* Test Item Value Reference Range Interpretation Comme nts WBC (test code = 1001) 8.6 K/UL RBC (test code = 1002) 5.26 M/UL HEMOGLOBIN (test code = 1003) 15.7 G/DL HEMATOCRIT (test code = 1004) 45.3 % MCV (test code = 1005) 86.1 fL MCH (test code = 1006) 29.8 PG MCHC (test code = 1007) 34.7 G/DL RDW (test code = 1038) 13.3 % NEUTROPHILS (test code = 1008) 76.2 % LYMPHOCYTES (test code = 1010) 18.6 % MONOCYTES (test code = 1011) 4.2 % EOSINOPHILS (test code = 1012) 0.4 % BASOPHILS (test code = 1013) 0.6 % PLATELET COUNT (test code = 1015) 352 K/UL Dony [id number] 00:00:00* Test Item Value Reference Range Interpretation Comme nts TSH, THIRD GENERATION (test code = 2821) 0.635 UIU/ML Dony AguilarCOMPREHENSIVE METABOLIC [id number] 00:00:00* Test Item Value Reference Range Interpretation Comme nts GLUCOSE (test code = 2217) 97 MG/DL BUN (test code = 2208) 19 MG/DL CREATININE (test code = 2214) 1.37 MG/DL eGFR AMER. (test cod e = ) 79 ML/MIN/1.73 eGFR NON- AMER. (test code = 02415) 68 ML/MIN/1.73 CALC BUN/CREAT (test code = 2235) 14 RATIO SODIUM (test code = 2231) 139 MEQ/L POTASSIUM (test code = 2228) 4.2 MEQ/L CHLORIDE (test code = 2215) 100 MEQ/L CARBON DIOXIDE (test code = 2206) 22 MEQ/L CALCIUM (test code = 2209) 10.1 MG/DL PROTEIN, TOTAL (test code = 2229) 7.8 G/DL ALBUMIN (test code = 2201) 5.3 G/DL CALC GLOBULIN (test code = 2240) 2.5 G/DL CALC A/G RATIO (test code = 2234) 2.1 RATIO BILIRUBIN, TOTAL (test code = 2207) 0.5 MG/DL ALKALINE PHOSPHATASE (test code = 2204) 71 U/L AST (test code = 2218) 25 U/L ALT (test code = 2219) 24 U/L Dony Davis JeffLIPID [id number] 00:00:00* Test Item Value Reference Range Interpretation Comme nts CHOLESTEROL (test code = 2210) 195 MG/DL TRIGLYCERIDES (test code = 2232) 70 MG/DL HDL CHOLESTEROL (test code = 2220) 64 MG/DL CALC LDL CHOL (test code = 2237) 117 MG/DL RISK RATIO LDL/HDL (test cod e = 2238) 1.83 RATIO Dony [id number] 00:00:00* Test Item Value Reference Range Interpretation Comme nts TSH (test code = 2821) 2.000 UIU/ML Dony Davis JeffCBC W/AUTO [id number] 00:00:00* Test Item Value Reference Range Interpretation Comme nts WBC (test code = 1001) 5.0 K/UL RBC (test code = 1002) 5.06 M/UL HEMOGLOBIN (test code = 1003) 14.8 G/DL HEMATOCRIT (test code = 1004) 43.7 % MCV (test code = 1005) 86.4 fL MCH (test code = 1006) 29.2 PG MCHC (test code = 1007) 33.9 G/DL RDW (test code = 1038) 12.9 % NEUTROPHILS (test code = 1008) (NOTE) % LYMPHOCYTES (test code = 1010) TEST NOT PERFORMED % MONOCYTES (test code = 1011) TEST NOT PERFORMED % EOSINOPHILS (test code = 1012) TEST NOT PERFORMED % BASOPHILS (test code = 1013) TEST NOT PERFORMED % PLATELET COUNT (test code = 1015) 289 K/UL Dony AguilarHEMOGLOBIN [id number] 00:00:00* Test Item Value Reference Range Interpretation Comme nts HEMOGLOBIN A1c (test code = 49177) 5.6 % Dony Aguilar Notes Date/Time Note Provider Source Dony Aguilar [facility]2023-10-13 18:01:00 [facility] ([facility]) EMERGENCY PROVIDER REPORT REPORT#:[id number] REPORT STATUS: Signed DATE:06/13/23 TIME: 1800 PATIENT: DURAN HAUSER UNIT #: [id number] ROOM/BED: AGE: 37 SEX: M PCP PHYS: No Primary or Family Physician SERVICE AUTHOR: Jamari Spicer DO * ALL edits or amendments must be made on the electronic/computer document * HPI-Abd Pain M Under 40 Free Text HPI Notes Free Text HPI Notes 37-year-old male with no stated PMH here for evaluation of abdominal pain. He states that for the past 4 days he has been having a pain in his anterior abdomen just right of midline. He denies any nausea, vomiting, diarrhea, fever, bloody stool. General Confirmed Patient Yes Initial Greet Date/Time 06/13/231747 Presentation Chief Complaint Abdominal pain Review of Systems Free Text ROS Notes Free Text ROS Notes Abdominal pain Past Medical History - Adult Stated Complaint PULSATING L LOWER ABD, NAUSEA X 6 DAYS Allergies Coded Allergies: No Known Allergies (06/13/23) Calculated Suicide Risk (nurs) No risk Smoking status for patients 13 years old or older: Never Smoker Physical Exam Vital Signs Vital Signs First Documented: Result Date Time Pulse Ox 100 06/13 1748 B/P 128/77 06/13 1748 B/P Mean 94 06/13 1748 O2 Delivery Room air 06/13 1748 Temp 36.5 06/13 1748 Pulse 73 06/13 1748 Resp 16 06/13 1748 Last Documented: Result Date Time Pulse Ox 99 06/13 1912 B/P 130/78 06/13 1912 B/P Mean 95 06/13 1912 O2 Delivery Room air 06/13 1912 Temp 36.7 06/13 1912 Pulse 76 06/13 1912 Resp 15 06/13 1912 Review of Vital Signs Reviewed Free Text PE Notes Free Text PE Notes -General: Awake, alert, well appearing, no acute distress -Skin: Color normal, no rash, warm, dry -Head: Atraumatic, normocephalic -EENT: PERRLA, EOMI, no pharyngeal erythema or exudate -Neck: Supple, full range of motion, no meningismus -Cardiovascular: Regular rate and rhythm, no murmur -Respiratory: No respiratory distress, CTAB, no wheezing or rhonchi -Abdomen: Mild TTP over the anterior abdomen just right of midline and inferior of the umbilicus. Nondistended, no rebound or guarding -MSK: No back pain or step offs, normal extremity ROM -Neurologic: Oriented x3, normal speech -Psychiatric: Normal mood and affect Interpretation Diagnostics Lab Results Interpretation Results Laboratory Tests: 06/13 Chemistry POC Sodium (134 - 147 mmol/L) 138 POC Potassium (3.4 - 5.8 mmol/L) 4.0 POC Chloride (100 - 108 mmol/L) 105 POC Total CO2 (24 - 30 mmol/L) 30 POC Anion Gap (0 - 20) 3 POC BUN (3 - 25 mg/dL) 12 POC Creatinine (0.6 - 1.3 mg/dL) 1.1 Est GFR (CKD-EPI 2020) (>or=60 mL/min) 89 POC Glucose (70 - 110 mg/dL) 97 POC Calcium (7.0 - 11.0 mg/dL) 9.4 POC Total Bilirubin (0.0 - 1.0 mg/dL) 0.6 POC AST (15 - 37 U/L) 32 POC ALT (30 - 65 U/L) 24 L POC Alk Phosphatase (20 - 125 U/L) 70 POC Total Protein (5.0 - 8.0 g/dL) 7.3 POC Albumin (3.5 - 5.0 g/dL) 3.8 POC Amylase (25 - 125 U/L) 62 Hematology POC WBC (3.9 - 9.4 10 3/uL) 7.2 POC RBC (4.14 - 5.52 10 6/uL) 4.94 POC Hgb (11.9 - 16.7 g/dL) 14.6 POC Hct (36.1 - 49.4 %) 43.6 POC MCV (83.2 - 96.0 fL) 88.3 POC MCH (27.1 - 32.5 pg) 29.6 POC MCHC (31.0 - 35.8 g/dL) 33.5 POC RDW Coeff of Radu (12.0 - 15.0 %) 13.5 POC Platelet Count (155 - 330 10 3/uL) 325 POC MPV (8.7 - 12.6 fL) 10.2 POC Mixed Cells % (3.2 - 16.9 %) 7.6 POC Neut # (2.2 - 6.4 10 3/uL) 4.40 POC Lymph # (0.9 - 3.0 k/mm3) 2.30 POC Ogle # (0.2 - 1.1 10 3/uL) 0.5 POC Lymphocytes % (16.8 - 42.5 %) 32.1 POC Neutrophils % (46.4 - 74.7 %) 60.3 Recent Impressions: CAT SCAN - CT ABD PELVIS W/CONT 06/13 1847 Report Impression - Status: SIGNED Entered: 06/13/2023 1909 IMPRESSION: No acute findings in the abdomen/pelvis. Impression By: [email or web address] - Duran Coleman M.D. Lab Imaging Statement Laboratory radiographic studies reviewed and considered in the medical decision-making. Re-Evaluation MDM Free Text MDM Notes Free Text MDM Notes ED nieto as above grossly reassuring. No acute process to explain pts abd pain. CT abd/pelvis without evidence for an acute abd. Pain controlled in ED. Will have pt f/u with GI and primary care as an outpt. Strict return precautions given. ED Course Medication(s) Ordered Medication(s) Ordered: Central Nervous System Agents Sig/Liliana Start time Last Medication Dose Route Stop Time Status Admin Morphine Sulfate 4 MG X1ED STA 06/13 1759 DC 06/13 IV 06/13 1800 1805 Diagnostic Agents Sig/Liliana Start time Last Medication Dose Route Stop Time Status Admin Iopamidol 95 ML .STK-MED ONE 06/13 1826 DC 06/13 IV 06/13 1827 182 Gastrointestinal Drugs Sig/Liliana Start time Last Medication Dose Route Stop Time Status Admin Ondansetron HCl 4 MG X1ED PRN PRN 06/13 1800 DC 06/13 IV 1806 Patient Discharge Departure Vital Signs/Condition Vital Signs First Documented: Result Date Time Pulse Ox 100 06/13 1748 B/P 128/77 06/13 1748 B/P Mean 94 06/13 1748 O2 Delivery Room air 06/13 1748 Temp 36.5 06/13 1748 Pulse 73 06/13 1748 Resp 16 06/13 1748 Last Documented: Result Date Time Pulse Ox 99 06/13 1912 B/P 130/78 06/13 1912 B/P Mean 95 06/13 1912 O2 Delivery Room air 06/13 1912 Temp 36.7 06/13 1912 Pulse 76 06/13 1912 Resp 15 06/13 1912 All vital signs available at the time of this entry have been reviewed. Condition Stable, Improved Clinical Impression Clinical Impression Primary Impression: Abdominal pain Disposition Decision Discharge )( Discharged to Home Yes )( Time 1909 )( Date 06/13/23 Discharge/Care Plan Counseled Regarding Diagnosis, Lab results, Imaging studies, Prescriptions, Need for follow-up, When to return to ED (Auto) Prescriptions Current Visit Scripts NAPROXEN (NAPROSYN) 500 MG PO BID PRN PRN PAIN NAPROXEN (NAPROSYN) 500 MG PO BID PRN PRN PAIN #15 TABS Patient Instructions Abdominal Pain Referrals Provider Referral: Kenny Machado MD Address: [address] [facility] [address] [place] [address] Provider Referral: Juanita Yanes MD Address: [address] [place] [address] Provider Referral: Dinorah Reeves MD Address: [address] [facility] [address] [place] [address] Departure Forms [facility] PCP LIST Discharge Note I have spoken with the patient and/or caregivers. I have explained the patient's condition, diagnoses and treatment plan based on the information available to me at this time. I have answered the patient's and/or caregiver's questions and addressed any concerns. The patient and/or caregivers have as good an understanding of the patient's diagnosis, condition and treatment plan as can be expected at this point. The vital signs have been stable. The patient's condition is stable and appropriate for discharge from the emergency department. The patient will pursue further outpatient evaluation with the primary care physician or other designated or consulting physician as outlined in the discharge instructions. The patient and/or caregivers are agreeable to this plan of care and follow-up instructions have been explained in detail. The patient and/or caregivers have received these instructions in written format and have expressed an understanding of the discharge instructions. The patient and/or caregivers are aware that any significant change in condition or worsening of symptoms should prompt an immediate return to this or the closest emergency department or a call to 911. at 0822 RPT #:[id number] END OF REPORTHCACL"
[2024-11-02] MEDS ORDERED: MAGNES/ALUMIN/SIMET 30ML UCUP ONE (19:58)
[2024-11-02] MEDS ORDERED: LIDOCAINE VISCOUS 2% 10ML ORAL SOLN ONE (19:58)
[2024-11-02] MEDS ORDERED: FAMOTIDINE 20 MG/2 ML VIAL IV ONE (19:59)
[2024-11-02 20:11] LABS: Absolute Basophils 0.1 K/uL (0-0.5); Absolute Eosinophils 0.2 K/uL (0-0.5); Absolute Lymphocytes (CBC) 3.6 K/uL (0.7-4.9); Absolute Monocytes 0.6 K/uL (0.1-1.3); Absolute Neutrophil 3.6 K/uL (1.8-8.0); Eosinophils % 2.3 % (0-4.4); Hematocrit 43.8 % (39.6-49.0); Hemoglobin 14.7 g/dL (13.6-17.9); Lymphocytes % 44.8 % (15.3-44.8); MCH 29.9 pg (27.0-35.0); MCHC 33.6 g/dL (32.0-36.0); MCV 89.1 fL (80-100); MPV 7.7 fL (7.6-11.3); Neutrophils % 44.9 % (41.7-73.7); Nucleated Red Blood Cells % 0.2 % (0-0); Platelets 297 thou/uL (152-406); RBC Red Blood Cell Count 4.92 M/uL (4.33-5.43); Red Cell Distribution Width 13.3 % (12.1-15.2)
[2024-11-02 20:19] LABS: Albumin 3.8 g/dL (3.4-5.0); Anion Gap 5.9 mEq/L (5.0-15.0); Bilirubin Total 0.6 mg/dL (0.2-1.0); Globulin 3.8 g/dL (2.3-3.5); Potassium 3.9 mEq/L (3.5-5.1); Protein, Total 7.6 g/dL (6.4-8.2)
--- NOTE | 2024-11-02 20:23 | ER ---
Nurse's Notes [facility] Name: Bandar Torrez Age: 39 yrs Sex: Male : 1985 Arrival Date: 11/02/2024 Time: 18:01 Bed IW4 Private MD: Diagnosis: Epigastric abdominal tenderness;Gastritis, unspecified, without bleeding Presentation: 11/02 18:34 Chief complaint: Patient states: Epigastric pain X 1 month. Coronavirus screen: At this ld1 time, the client does not indicate any symptoms associated with coronavirus-19. Ebola Screen: No symptoms or risks identified at this time. Initial Sepsis Screen: Does the patient meet any 2 criteria? No. Patient's initial sepsis screen is negative. Does the patient have a suspected source of infection? No. Patient's initial sepsis screen is negative. Risk Assessment: Do you want to hurt yourself or someone else? Patient reports no desire to harm self or others. Onset of symptoms was November 02, 2024 at 18:36. 18:34 Method Of Arrival: Ambulatory ld1 18:34 Acuity: SUNNY 3 ld1 Triage Assessment: 18:34 General: Appears in no apparent distress. comfortable, Behavior is calm, cooperative, ld1 appropriate for age. Pain: Complains of pain in epigastric area Pain does not radiate. Pain currently is 8 out of 10 on a pain scale. Quality of pain is described as throbbing, Pain began suddenly, Is continuous. EENT: No signs and/or symptoms were reported regarding the EENT system. Neuro: Level of Consciousness is awake, alert, obeys commands, Oriented to person, place, time, situation. Cardiovascular: Capillary refill < 3 seconds Patient's skin is warm and dry. Respiratory: Airway is patent Respiratory effort is even, unlabored. GI: Abdomen is flat, non-distended, Reports upper abdominal pain, nausea. : No signs and/or symptoms were reported regarding the genitourinary system. Derm: No signs and/or symptoms reported regarding the dermatologic system. Musculoskeletal: No signs and/or symptoms reported regarding the musculoskeletal system. Historical: - Allergies: 18:34 No Known Allergies; ld1 - Home Meds: 18:34 None [Active]; ld1 - PMHx: 18:34 None; ld1 - PSHx: 18:34 None; ld1 - Immunization history:: Adult Immunizations up to date. - Infectious Disease History:: Denies. - Social history:: Smoking status: Patient denies any tobacco usage or history of. - Family history:: not pertinent. - Hospitalizations: : No recent hospitalization is reported. Screenin:55 [facility] ED Fall Risk Assessment (Adult) History of falling in the last 3 months, bm8 including since admission No falls in past 3 months (0 pts) Confusion or Disorientation No (0 pts) Intoxicated or Sedated No (0 pts) Impaired Gait No (0 pts) Mobility Assist Device Used No (0 pt) Altered Elimination No (0 pt) Score/Fall Risk Level 0 - 2 = Low Risk Oriented to surroundings, Maintained a safe environment, Educated pt \T\ family on fall prevention, incl call for assistance when getting out of bed, Assessed \T\ reinforced patient's understanding of fall precautions, Hourly rounding (assess needs \T\ fall precautionary measures) done, Used ambulatory aids as needed (educated on \T\ assisted with), Used gait belt as appropriate. Abuse screen: Denies threats or abuse. Nutritional screening: No deficits noted. Tuberculosis screening: No symptoms or risk factors identified. Assessment: 20:55 Reassessment: Patient appears in no apparent distress at this time. Patient and/or bm8 family updated on plan of care and expected duration. Pain level reassessed. Patient is alert, oriented x 3, equal unlabored respirations, skin warm/dry/pink. Patient states feeling better. Patient states symptoms have improved. Pain: Pain currently is 2 out of 10 on a pain scale. Vital Signs: 18:34 Weight 74.84 kg; Height 5 ft. 7 in. ; Pain 6/10; ld1 18:34 BP 124 / 80; Pulse 56; Resp 18; Temp 97.3(TE); Pulse Ox 100% on R/A; ld1 20:55 BP 122 / 85; Pulse 51; Resp 18; Temp 97.3; Pulse Ox 99% ; Pain 2/10; bm8 18:34 Body Mass Index 25.84 (74.84 kg, 170.18 cm) ld1 18:34 Pain Scale: Adult ld1 20:55 Pain Scale: Adult bm8 Selena Coma Score: 20:55 Eye Response: spontaneous(4). Motor Response: obeys commands(6). Verbal Response: bm8 oriented(5). Total: 15. ED Course: 18:04 Patient arrived in ED. cj3 18:09 Cheo Crum MD is Attending Physician. rn 18:27 Abdomen Limited In Process Unspecified. EDMS 18:34 Arm band placed on right wrist. ld1 18:36 Triage completed. ld1 19:41 Radiology exam delayed due to lab results not completed at this time. IV insertion jc4 attempt and/or patient not having appropriate IV at this time. 20:01 No provider procedures requiring assistance completed. Inserted saline lock: 20 gauge bm8 in left antecubital area, using aseptic technique. Blood collected. Flushed with 10 mL NS. 20:22 Joon Norton MD is Referral Physician. rn 20:55 Patient has correct armband on for positive identification. Provided Education on: post bm8 er care. Client placed on continuous cardiac and pulse oximetry monitoring. NIBP monitoring applied. Pulse ox on. NIBP on. 20:55 IV discontinued, intact, bleeding controlled, No redness/swelling at site. Pressure bm8 dressing applied. Administered Medications: 20:01 Drug: Famotidine IVP 20 mg IVP once; dilute with 10 mL 0.9% NaCl; give over 2 minutes bm8 Route: IVP; Site: left antecubital; 20:57 Follow up: Response: No adverse reaction bm8 20:01 Drug: GI Cocktail without - (Maalox PO 30 ml, Lidocaine Mucous Membrane 2 % 15 bm8 ml) PO once Route: PO; 20:57 Follow up: Response: No adverse reaction bm8 Medication: 20:55 VIS not applicable for this client. bm8 Outcome: 20:22 Discharge ordered by . rn 20:55 Discharged to home ambulatory, bm8 20:55 Condition: stable 20:55 Discharge instructions given to patient, Instructed on discharge instructions, follow up and referral plans. no drinking with medication, no driving heavy equipment, medication usage, benefits of quitting smoking, Demonstrated understanding of instructions, follow-up care, medications, Prescriptions given X 1, 20:57 Patient left the ED. bm8 Signatures: Dispatcher [employer] EDIN Cheo Crum MD MD rn Sims, Lauren, RN RN ld1 Zach Turner RN RN bm8 Omar Colindres [id number] Tamia Manley cj3
--- NOTE | 2024-11-02 20:23 | EDPHYS ---
Physician Documentation [facility] Name: Bandar Torrez Age: 39 yrs Sex: Male : 1985 Arrival Date: 11/02/2024 Time: 18:01 Bed IW4 Private MD: ED Physician Cheo Crum HPI: 11/02 18:57 This 39 yrs old Male presents to ER via Ambulatory with complaints of Upper rn Abdonimal Pain. 18:57 The patient presents with abdominal pain in the epigastric area. Onset: The rn symptoms/episode began/occurred 1 month(s) ago. Associated signs and symptoms: Pertinent positives: anorexia, nausea, Pertinent negatives: blood in stools, chest pain, fever. Modifying factors: The symptoms are alleviated by nothing, the symptoms are aggravated by food. Severity of pain: At its worst the pain was mild in the emergency department the pain is unchanged. The patient has experienced similar episodes in the past. Patient reports epigastric abdominal pain for about a month. Reports decreased appetite and pain when eating. No blood in stool. No hematemesis.. Historical: - Allergies: 18:34 No Known Allergies; ld1 - Home Meds: 18:34 None [Active]; ld1 - PMHx: 18:34 None; ld1 - PSHx: 18:34 None; ld1 - Immunization history:: Adult Immunizations up to date. - Infectious Disease History:: Denies. - Social history:: Smoking status: Patient denies any tobacco usage or history of. - Family history:: not pertinent. - Hospitalizations: : No recent hospitalization is reported. ROS: 18:57 Constitutional: Negative for fever, chills, and weight loss, Cardiovascular: Negative rn for chest pain, palpitations, and edema, Respiratory: Negative for shortness of breath, cough, wheezing, and pleuritic chest pain, Abdomen/GI: Positive for abdominal pain MS/Extremity: Negative for injury and deformity, Skin: Negative for injury, rash, and discoloration, Neuro: Negative for headache, weakness, numbness, tingling, and seizure, Exam: 18:57 Constitutional: This is a well developed, well nourished patient who is awake, alert, rn and in no acute distress. Cardiovascular: Regular rate and rhythm. No pulse deficits. Respiratory: No increased work of breathing, no retractions or nasal flaring. Abdomen/GI: Soft, mild epigastric tenderness. Negative Topete. MS/ Extremity: Pulses equal, no cyanosis. Neuro: Awake and alert, GCS 15 Vital Signs: 18:34 Weight 74.84 kg; Height 5 ft. 7 in. ; Pain 6/10; ld1 18:34 BP 124 / 80; Pulse 56; Resp 18; Temp 97.3(TE); Pulse Ox 100% on R/A; ld1 20:55 BP 122 / 85; Pulse 51; Resp 18; Temp 97.3; Pulse Ox 99% ; Pain 2/10; bm8 18:34 Body Mass Index 25.84 (74.84 kg, 170.18 cm) ld1 18:34 Pain Scale: Adult ld1 20:55 Pain Scale: Adult bm8 Selena Coma Score: 20:55 Eye Response: spontaneous(4). Motor Response: obeys commands(6). Verbal Response: bm8 oriented(5). Total: 15. MDM: 18:09 Medical Screening Exam initiated rn 20:21 Differential diagnosis: cholecystitis, Cholelithiasis, gastritis, gastroesophageal rn reflux disease, non-specific abd pain, pancreatitis, Peptic Ulcer Disease. Data reviewed: vital signs, nurses notes, lab test result(s), radiologic studies, ultrasound, and as a result, I will discharge patient. Counseling: I had a detailed discussion with the patient and/or guardian regarding the historical points, exam findings, and any diagnostic results supporting the discharge/admit diagnosis, lab results, radiology results, the need for outpatient follow up, to return to the emergency department if symptoms worsen or persist or if there are any questions or concerns that arise at home. Response to treatment: the patient's symptoms have mildly improved after treatment, and as a result, I will discharge patient. Special discussion: Based on the patient's Hx, exam, and Dx evaluation, there is no indication for emergent surgery or inpatient Tx. It is understood by the patient/guardian that if the Sx's persist or worsen they need to return immediately for re-evaluation. I discussed with the patient/guardian in detail that at this point there is no indication for admission to the hospital. It is understood, however, that if the symptoms persist or worsen the patient needs to return immediately for re-evaluation. 11/02 18:09 Order name: CBC with Diff; Complete Time: 20:14 rn 11/02 18:09 Order name: CMP; Complete Time: 20:20 rn 11/02 18:09 Order name: Lipase; Complete Time: 20:20 rn 11/02 18:09 Order name: US Abdomen Limited rn 11/02 18:09 Order name: IV Saline Lock; Complete Time: 20:01 rn 11/02 18:09 Order name: Labs collected and sent; Complete Time: 20:01 rn Administered Medications: 20:01 Drug: Famotidine IVP 20 mg IVP once; dilute with 10 mL 0.9% NaCl; give over 2 minutes bm8 Route: IVP; Site: left antecubital; 20:57 Follow up: Response: No adverse reaction bm8 20:01 Drug: GI Cocktail without - (Maalox PO 30 ml, Lidocaine Mucous Membrane 2 % 15 bm8 ml) PO once Route: PO; 20:57 Follow up: Response: No adverse reaction bm8 Disposition Summary: 11/02/24 20:22 Discharge Ordered Notes: Location: Home rn Problem: an ongoing problem rn Symptoms: have improved rn Condition: Stable rn Diagnosis - Epigastric abdominal tenderness rn - Gastritis, unspecified, without bleeding rn Followup: rn - With: Joon Norton MD - When: As needed - Reason: Recheck today's complaints, Re-evaluation by your physician Discharge Instructions: - Discharge Summary Sheet rn - Abdominal Pain, Adult rn - Gastritis, Adult rn Forms: - Medication Reconciliation Form rn - Antibiotic journeyman glazier - Prescription Opioid Use rn - Patient Portal Instructions rn - Leadership Thank You Letter rn Prescriptions: - Protonix 40 mg Oral Tablet - take 1 tablet ORAL route once daily; 30 tablet; Refills: 0, Product Selection rn Permitted Signatures: Dispatcher [employer] EDMS Cheo Crum MD MD rn Sims, Lauren RN RN ld1 Zach Turner RN RN bm8 Corrections: (The following items were deleted from the chart) 18:10 18:10 CBC+H.LAB.BRZ ordered. EDMS EDMS 18:10 18:10 COMPREHENSIVE METABOLIC PANEL+C.LAB.BRZ ordered. EDMS EDMS 18:10 18:10 LIPASE+C.LAB.BRZ ordered. EDMS EDMS 20:38 18:10 Abdomen Pelvis W Con+CT.RAD.BRZ ordered. EDMS EDMS
--- NOTE | 2024-11-02 21:13 | RAD REPORT ---
EXAM: Right upper quadrant ultrasound. CLINICAL HISTORY: Abdominal pain COMPARISON: None FINDINGS: A gallstone is not seen. Gallbladder wall not thickened. Biliary tree normal caliber IMPRESSION: No significant abnormalities displayed
[2024-11-02 21:19] VITALS: TEMP 97.3
[2024-11-02 21:21] VITALS: BP 122/85; O2SAT 99
== END 2024-11-02 20:57 | disposition home or self-care (01) ==
LOC: ER 18:01
DX: K29.70 Gastritis, unspecified, without bleeding (principal)
CPT/HCPCS: 36415; 76705; 80053; 83690; 85025